=== PATIENT | female | born 1940 | race Caucasian/White ===

== ENCOUNTER 2018-01-28 05:50 | Emergency (ER) | payer MEDICARE, OTHER ==
--- NOTE | 2018-01-28 06:31 | ER Document Report ---
ED Fall - General Mode of Arrival: Medic Information source: Patient, Relative TRAVEL OUTSIDE OF THE U.S. IN LAST 30 DAYS: No <MAISHA ANDRADE - Last Filed: 01/28/18 08:41> <ELIAZAR WEST - Last Filed: 01/28/18 08:46> - General Chief Complaint: Fall Stated Complaint: FALL Time Seen by Provider: 01/28/18 06:09 Notes: 77-year-old female who presents to the emergency department today with complaints of a fall that occurred this morning when trying to get up from the toilet. Patient lives at the [facility]. Patient states that she rang her call kilgore, she was wheeled to the bathroom but the wheelchair was removed so when standing up from the toilet she had nothing to sit on and lost her balance. Patient complains of a laceration to her forehead and right elbow. Patient also complains of neck soreness which is chronic for her. Patient denies any new neck pain, stating it seems to be about baseline, but mentions that she is not taking her morning meds yet either. Patient takes aspirin daily. Patient denies any vomiting or loss of consciousness. (MAISHA ANDRADE) - Related data Allergies/Adverse Reactions: shellfish Allergy (Uncoded 01/28/18 07:37) Past Medical History - General Information source: Patient - Social History Smoking Status: Never Smoker Cigarette use (# per day): No Frequency of alcohol use: Rare Lives with: Detention - [facility] - Past Medical History Cardiac Medical History: Reports: Hx Hypertension Neurological Medical History: Reports: Hx Cerebrovascular Accident <MAISHA ANDRADE - Last Filed: 01/28/18 08:41> - Social History Family History: Reviewed & Not Pertinent <ELIAZAR WEST - Last Filed: 01/28/18 08:46> Review of Systems - Review of Systems Constitutional: No symptoms reported EENT: No symptoms reported Cardiovascular: No symptoms reported Respiratory: No symptoms reported Gastrointestinal: denies: Vomiting Genitourinary: No symptoms reported Female Genitourinary: No symptoms reported Musculoskeletal: See HPI, Neck pain - chronic Skin: See HPI, Other - laceration to forehead, right elbow Hematologic/Lymphatic: No symptoms reported Neurological/Psychological: denies: Lost consciousness -: Yes All other systems reviewed and negative <MAISHA ANDRADE - Last Filed: 01/28/18 08:41> Physical Exam <LUPEMAISHA - Last Filed: 01/28/18 08:41> <ELIAZAR WEST - Last Filed: 01/28/18 08:46> - Vital signs Vitals: Pulse Resp BP Pulse Ox 69 16 142/78 H 100 01/28/18 05:50 01/28/18 05:50 01/28/18 05:50 01/28/18 05:50 - Notes Notes: PHYSICAL EXAM GENERAL: Alert, interacts well. No acute distress. HEAD: Normocephalic, see skin exam. EYES: Pupils equal, round, and reactive to light. Extraocular movements intact. ENT: Oral mucosa moist, tongue midline. NECK: Supple. Trachea midline. No midline bony tenderness with palpation. LUNGS: Crackles at the bases bilaterally, no wheezes, rales, or rhonchi. No respiratory distress. HEART: Regular rate and rhythm. No murmurs, gallops, or rubs. ABDOMEN: Soft, mild tenderness with palpation. Non-distended. Bowel sounds present in all 4 quadrants. No guarding, rigidity, or rebound. EXTREMITIES: Moves all 4 extremities spontaneously. No edema, radial and dorsalis pedis pulses 2/4 bilaterally. No cyanosis. NEUROLOGICAL: Alert and oriented x3. Normal speech. PSYCH: Normal affect, normal mood. SKIN: Warm, dry, normal turgor. 2cm abrasion over the forehead with underlying superficial laceration. Superficial abrasion over the right olecranon with minimal bleeding without skin flap or true laceration. Bandages over right thigh that is followed by home health - patient and family request that this bandage not be removed as it was not involved in the fall today. (MAISHA ANDRADE) Course <MAISHA ANDRADE - Last Filed: 01/28/18 08:41> <ELIAZAR WEST - Last Filed: 01/28/18 08:46> - Re-evaluation Re-evalutation: 01/28/18 07:45 CT scan of the head shows no acute process, patient's neck pain is only slightly increased from baseline and she states she think that is because she has not had her usual morning medications yet. Patient has no new neurologic deficits. She does not have any numbness or tingling, she does not have any signs of cord injury and she has no midline bony tenderness to palpation. No indication for CT scan of the neck at this time. Discussed risks and benefits of CT scan of the neck versus holding off with patient and family and at this time they do not wish to perform a CT scan of the neck. There is a very slight laceration to the forehead with superficial skin tear measuring approximately 2 cm, this was cleansed with Shur-Clens and then approximated with Dermabond. Patient was given her usual morning Celebrex, Ativan and tramadol. Discharged home. (ELIAZAR WEST) - Vital Signs Vital signs: Temp Pulse Resp BP Pulse Ox 66 16 142/74 H 96 01/28/18 08:28 01/28/18 08:28 01/28/18 08:28 01/28/18 08:28 Procedures - Laceration/Wound Repair Right Upper Face Wound length (cm): 2 Wound's Depth, Shape: Superficial, Contused tissue Laceration pre-procedure: Shur-Clens applied Wound explored: Clean, No foreign body removed Wound Repaired With: Dermabond Layer Closure?: No Post-procedure NV exam normal: Yes Complications: No <ELIAZAR WEST - Last Filed: 01/28/18 08:46> Discharge <MAISHA ANDRADE - Last Filed: 01/28/18 08:41> <ELIAZAR WEST - Last Filed: 01/28/18 08:46> - Discharge Clinical Impression: Fall from or off toilet with subsequent striking against object, initial encounter Laceration of head Qualifiers: Encounter type: initial encounter Location of open wound of head: scalp Foreign body presence: without foreign body Qualified Code(s): S01.01XA - Laceration without foreign body of scalp, initial encounter Condition: Stable Disposition: HOME, SELF-CARE Additional Instructions: Skin Adhesive Closure Skin adhesive (such as Dermabond) is a quick-drying glue that remains slightly flexible while it holds wound edges together. It can substitute for stitches on some cuts. The film will usually fall off the skin after 5 to 10 days. Keep the wound area clean and dry. Do not soak or scrub the wound. Don't swim. You can shower briefly after 24 hours. Gently blot the area dry with a soft towel. Don't apply ointments. If there is a dressing, change it immediately if it gets wet. Do not place tape directly over the adhesive film, because the tape may pull the film off your skin as you remove it. Don't bump the wound area. If there's risk of injury, keep the area well- padded. Avoid stretching of the skin. Do not scratch or pick at the adhesive film. Avoid prolonged exposure to sunlight or tanning lamps. Return if there is increasing pain, swelling, redness, or drainage, or if the wound edges seem to open or separate. Head Injury Precautions At this point, there is no evidence that your head injury is serious. Observation is necessary, however. Take only clear liquids for the first few hours, unless told otherwise by the doctor. If no pain medication was prescribed, you may take acetaminophen according to the directions on the bottle. Do not take any medication that may alter your level of alertness (unless you've discussed it with the doctor first) . Limit activity for the first 24 hours. Bed rest is best. During the first 24 hours, check to see approximately every two to three hours that the patient is easily arousable, responds normally, and can perform common tasks such as walking without difficulty. Contact your doctor or go to the hospital if any of the following things occur: Persistent vomiting, difficulty in arousing the patient, worsening or continued headache, or failure to improve as expected. Head injuries can cause symptoms that persist for a few days or even a few weeks. Scribe Attestation: 01/28/18 08:46 I personally performed the services described in the documentation, reviewed and edited the documentation which was dictated to the scribe in my presence, and it accurately records my words and actions. (ELIAZAR WEST) Scribe Documentation - Scribe Written by Jairo:: Jairo Kwan, 01/28/2018 0815 acting as scribe for :: Devyn <MAISHA ANDRADE - Last Filed: 01/28/18 08:41>
--- NOTE | 2018-01-28 07:08 | RADIOLOGY REPORT (SQ) ---
EXAM DESCRIPTION: CT HEAD WITHOUT IV CONTRAST COMPLETED DATE/TME: 01/28/2018 06:30 CLINICAL HISTORY: 77 years Female, fell, hit head, on ASA COMPARISON: None. TECHNIQUE: No contrast. Coronal and sagittal reformat. This exam was performed according to our departmental dose-optimization program, which includes automated exposure control, adjustment of the mA and/or kV according to patient size and/or use of iterative reconstruction technique. FINDINGS: No hemorrhage or infarct. No mass, mass effect, or midline shift. Posterior craniocervical hardware fusion. Brain and extra-axial structures appear otherwise intact. IMPRESSION: No acute findings.
[2018-01-28] MEDS ORDERED: TRAMADOL HCL 50 MG TABLET PO ONE (07:37)
[2018-01-28] MEDS ORDERED: LORAZEPAM 0.5 MG TABLET PO ONE (07:37)
[2018-01-28] MEDS ORDERED: PREGABALIN 50 MG CAPSULE PO ONE (07:37)
[2018-01-28] MEDS ORDERED: CELECOXIB 200 MG CAPSULE PO ONE (07:37)
[2018-01-28 08:29] VITALS: BP 142/74
== END 2018-01-28 08:29 | disposition home or self-care (01) ==
LOC: ER 05:50
PROC: 0HQ1XZZ Repair Face Skin, External Approach (ICD-10-PCS; principal; 2018-01-28)
DX: S01.81XA Laceration without foreign body of other part of head, initial encounter (principal); S51.011A Laceration without foreign body of right elbow, initial encounter; M54.2 Cervicalgia; G89.29 Other chronic pain; W18.12XA Fall from or off toilet with subsequent striking against object, initial encounter; Y92.121 Bathroom in nursing home as the place of occurrence of the external cause; I10 Essential (primary) hypertension
CPT/HCPCS: 99283; 70450; 12011; A9270 ×4; J3490

== ENCOUNTER 2018-03-14 19:17 | Emergency (ER) | payer MEDICARE, OTHER ==
[2018-03-14] MEDS ORDERED: ONDANSETRON HCL INJ/PF 4 MG/2 ML SDV IV ONE ×2 (20:47→22:39)
--- NOTE | 2018-03-14 20:51 | ER Document Report ---
ED Medical Screen (RME) - General Chief Complaint: Abdominal Pain Stated Complaint: ABDOMINAL PAIN Time Seen by Provider: 03/14/18 20:34 Notes: Patient is a 78-year-old female presents to the emergency department complaining of generalized lower abdominal pain and vomiting. Patient's son is in the emergency room with her stating patient has an extensive history of abdominal pain and vomiting episodes over the last couple of months. States she was seen at an outside hospital for same. States he thinks the patient was getting better and then today at the nursing facility started dry heaving and vomiting and complaining of generalized right lower abdominal pain. Patient is denying fever, dysuria. Son states patient does have an extensive history of hypokalemia and urinary tract infections. Physical exam: Generalized abdominal pain bilateral lower quadrants. Patient is actively dry heaving no active vomit seen. I have greeted and performed a rapid initial assessment of this patient. A comprehensive ED assessment and evaluation of the patient, analysis of test results and completion of the medical decision making process will be conducted by additional ED providers. TRAVEL OUTSIDE OF THE [place] IN LAST 30 DAYS: No - Related Data Allergies/Adverse Reactions: iodine Allergy (Verified 03/14/18 20:09) oxycodone Allergy (Verified 03/14/18 20:09) shellfish Allergy (Uncoded 01/28/18 07:37) Past Medical History - Social History Chew tobacco use (# tins/day): No Frequency of alcohol use: None Drug Abuse: None - Past Medical History Cardiac Medical History: Reports: Hx Hypertension Neurological Medical History: Reports: Hx Cerebrovascular Accident Renal/ Medical History: Denies: Hx Peritoneal Dialysis Physical Exam - Vital signs Vitals: Temp Pulse Resp BP Pulse Ox 98.5 F 93 24 H 143/92 H 100 03/14/18 19:24 03/14/18 19:24 03/14/18 19:24 03/14/18 19:24 03/14/18 19:24 Course - Vital Signs Vital signs: Temp Pulse Resp BP Pulse Ox 98.5 F 93 24 H 143/92 H 100 03/14/18 19:24 03/14/18 19:24 03/14/18 19:24 03/14/18 19:24 03/14/18 19:24
[2018-03-14 21:18] LABS: ABSOLUTE EOSINOPHILS # (AUTO) 0.2 10^3/uL (0.0-0.6); ABSOLUTE LYMPHOCYTES (AUTO) 2.4 10^3/uL (0.5-4.7); ABSOLUTE MONOCYTES (AUTO) 0.6 10^3/uL (0.1-1.4); ABSOLUTE NEUT (AUTO) 4.8 10^3/uL (1.7-8.2); BASOPHILS % (AUTO) 0.4 % (0-2); EOSINOPHILS % (AUTO) 1.9 % (0-6); HEMOGLOBIN 13.8 g/dL (12.0-15.5); LYMPHOCYTES % (AUTO) 29.5 % (13-45); MEAN CORPUSCULAR HEMOGLOBIN 29.2 pg (27.0-33.4); MEAN CORPUSCULAR HGB CONC 33.7 g/dL (32.0-36.0); MEAN CORPUSCULAR VOLUME 87 fl (80-97); MONOCYTES % (AUTO) 7.7 % (3-13); PLATELET COUNT 448 10^3/uL (150-450); RED BLOOD COUNT 4.72 10^6/uL (3.72-5.28); RED CELL DISTRIBUTION WIDTH 14.6 % (11.5-14.0); SEGMENTED NEUTROPHILS % (AUTO) 60.5 % (42-78); TOTAL CELLS COUNTED % (AUTO) 100 %
[2018-03-14 21:22] LABS: ALANINE AMINOTRANSFERASE 15 U/L (9-52); ALBUMIN 4.3 g/dL (3.5-5.0); ALKALINE PHOSPHATASE 105 U/L (38-126); ANION GAP 8 (5-19); ASPARTATE AMINO TRANSFERASE 57 U/L (14-36); BILIRUBIN,DIRECT 0.3 mg/dL (0.0-0.4); BILIRUBIN,TOTAL 0.5 mg/dL (0.2-1.3); BLOOD UREA NITROGEN 18 mg/dL (7-20); CALCIUM 9.7 mg/dL (8.4-10.2); CARBON DIOXIDE 30 mmol/L (22-30); CHLORIDE 99 mmol/L (98-107); GLUCOSE 122 mg/dL (75-110); LIPASE 78.1 U/L (23-300); POTASSIUM 3.2 mmol/L (3.6-5.0); SODIUM 136.8 mmol/L (137-145); TOTAL PROTEIN 7.4 g/dL (6.3-8.2)
--- NOTE | 2018-03-14 21:41 | RADIOLOGY REPORT (SQ) ---
EXAM DESCRIPTION: XR ABDOMEN SUPINE AND ERECT WITH CHEST (ABD ACUTE SERIES) COMPLETED DATE/TME: 03/14/2018 20:48 CLINICAL HISTORY: 78 years, Female, abd pain vomiting COMPARISON: None. NUMBER OF VIEWS: 3 TECHNIQUE: Upright chest with supine and erect views of the abdomen LIMITATIONS: None. FINDINGS: The heart size is normal. Osteopenia. Chronic changes to the shoulders bilaterally. No pneumothorax. No free air under the hemidiaphragms. Multiple nondilated air-filled loops of small bowel with a few air-fluid levels likely reflecting ileus. Incomplete obstruction felt less likely. Stool in the colon. No free air. Surgical clips in the abdomen and pelvis. Osteopenia. Atheromatous changes. IMPRESSION: No acute cardiopulmonary process. Probable mild ileus. No free air. Osteopenia copyright 2010 [employer]- All Rights Reserved
--- NOTE | 2018-03-14 22:11 | ER Document Report ---
ED General - General Chief Complaint: Abdominal Pain Stated Complaint: ABDOMINAL PAIN Time Seen by Provider: 03/14/18 20:34 Mode of Arrival: Ambulatory Information source: Patient Notes: 78-year-old female presents the emergency department with complaints of right lower quadrant abdominal pain, nausea, vomiting x 4 weeks. She has been seen at [facility] for similar symptoms multiple times. She was diagnosed with a urinary tract infection and discharged home on Zofran. She is been taking the medication as directed but continues to have the nausea and vomiting. Patient describes the pain as a dull aching sensation located in the right lower quadrant. No radiation. No alleviating or exacerbating factors. Patient states that she has had a cholecystectomy and hysterectomy. TRAVEL OUTSIDE OF THE [place] IN LAST 30 DAYS: No - HPI Onset: Other - 4 weeks Onset/Duration: Persistent Quality of pain: Achy Severity: Mild Pain Level: Denies Associated symptoms: Nausea, Vomiting Exacerbated by: Denies Relieved by: Denies Similar symptoms previously: Yes Recently seen / treated by doctor: Yes - Related Data Allergies/Adverse Reactions: iodine Allergy (Verified 03/14/18 20:09) oxycodone Allergy (Verified 03/14/18 20:09) shellfish Allergy (Uncoded 01/28/18 07:37) Past Medical History - General Information source: Patient - Social History Smoking Status: Never Smoker Chew tobacco use (# tins/day): No Frequency of alcohol use: None Drug Abuse: None Family History: Reviewed & Not Pertinent Patient has suicidal ideation: No Patient has homicidal ideation: No - Past Medical History Cardiac Medical History: Reports: Hx Hypertension Neurological Medical History: Reports: Hx Cerebrovascular Accident Renal/ Medical History: Denies: Hx Peritoneal Dialysis Review of Systems - Review of Systems Constitutional: No symptoms reported EENT: No symptoms reported Cardiovascular: No symptoms reported Respiratory: No symptoms reported Gastrointestinal: Abdominal pain, Nausea, Vomiting Genitourinary: No symptoms reported Female Genitourinary: No symptoms reported Musculoskeletal: No symptoms reported Skin: No symptoms reported Hematologic/Lymphatic: No symptoms reported Neurological/Psychological: No symptoms reported -: Yes All other systems reviewed and negative Physical Exam - Vital signs Vitals: Temp Pulse Resp BP Pulse Ox 98.5 F 93 24 H 143/92 H 100 03/14/18 19:24 03/14/18 19:24 03/14/18 19:24 03/14/18 19:24 03/14/18 19:24 - Notes Notes: PHYSICAL EXAMINATION: GENERAL: Well-appearing, Dry-heaving in the room. HEAD: Atraumatic, normocephalic. EYES: Pupils equal round and reactive to light, extraocular movements intact, conjunctiva are normal. ENT: Nares patent, oropharynx clear without exudates. Moist mucous membranes. NECK: Normal range of motion, supple without lymphadenopathy LUNGS: Breath sounds clear to auscultation bilaterally and equal. No wheezes rales or rhonchi. HEART: Regular rate and rhythm without murmurs ABDOMEN: Soft, tenderness to palpation in the right lower quadrant. No rebound or guarding. Female : deferred Musculoskeletal: Normal range of motion, no pitting or edema. No cyanosis. NEUROLOGICAL: Cranial nerves grossly intact. Normal speech, normal gait. Normal sensory, motor exams PSYCH: Normal mood, normal affect. SKIN: Warm, Dry, normal turgor, no rashes or lesions noted. Course - Re-evaluation Re-evalutation: 03/15/18 01:58 Labs and imaging obtained. UA has positive bacteria and WBC. Negative LE and nitrates. Urine culture ordered. Patient's potassium is slightly low. She was given potassium while in the emergency department. CT of the abdomen pelvis did not show an acute process. Patient was given fentanyl for pain. On reevaluation, patient states that she is feeling slightly better. She states that she is been having this for the last 4 weeks. I gave her the CT results. I told her no acute process was identified. I will start the patient on keflex for possible urinary tract infection. I instructed the patient to follow-up with her primary care physician this week, to continue taking medication prescribed as directed, and to return for worsening symptoms. 03/15/18 02:21 - Vital Signs Vital signs: Temp Pulse Resp BP Pulse Ox 98.3 F 76 18 134/67 H 96 03/15/18 03:00 03/15/18 03:09 03/15/18 03:09 03/15/18 03:09 03/15/18 03:09 - Laboratory Result Diagrams: 03/14/18 20:55 03/14/18 20:55 Laboratory results interpreted by me: 03/14/18 03/14/18 20:55 20:55 RDW 14.6 H Sodium 136.8 L Potassium 3.2 L Est GFR ( Amer) 53 L Est GFR (Non-Af Amer) 44 L Glucose 122 H AST 57 H Discharge - Discharge Clinical Impression: Abdominal pain Qualifiers: Abdominal location: right lower quadrant Qualified Code(s): R10.31 - Right lower quadrant pain Condition: Good Disposition: HOME, SELF-CARE Instructions: Abdominal Pain ([facility]) Prescriptions: Cephalexin Monohydrate [Keflex 500 mg Capsule] 500 mg PO Q6H 5 Days #20 capsule Referrals: NEREIDA OKEEFE MD [ACTIVE STAFF] - Follow up as needed
[2018-03-14 22:37] LABS: APPEARANCE,URINE CLOUDY; BILIRUBIN,URINE NEGATIVE (NEGATIVE); COLOR,URINE YELLOW; GLUCOSE, URINE NEGATIVE (NEGATIVE); KETONES,URINE NEGATIVE (NEGATIVE); LEUKOCYTE ESTERASE,URINE NEGATIVE (NEGATIVE); NITRITE,URINE NEGATIVE (NEGATIVE); PROTEIN,URINE NEGATIVE (NEGATIVE); URINE SPECIFIC GRAVITY 1.011; UROBILINOGEN,URINE NEGATIVE mg/dL (<2.0)
--- NOTE | 2018-03-14 23:12 | RADIOLOGY REPORT (SQ) ---
EXAM DESCRIPTION: CT ABDOMEN PELVIS WITH IV CONTRAST COMPLETED DATE/TME: 03/14/2018 20:47 CLINICAL HISTORY: 78 years, Female, right abd pain, pt fell yesterday COMPARISON: None. TECHNIQUE: 803 Images stored on PACS. All CT scanners at this facility use dose modulation, iterative reconstruction, and/or weight based dosing when appropriate to reduce radiation dose to as low as reasonably achievable (ALARA). [facility]: Dose Right [facility]: CareDose [facility]: Dose Right [facility]: Teradose 4D [facility]: [employer] LIMITATIONS: None. FINDINGS: Limited evaluation of the lung bases is unremarkable. Osseous structures of the abdomen/pelvis demonstrate post surgical changes of the lumbar spine. Multilevel degenerative change of the lumbar spine. Deformity minimal loss of height of the L4 vertebral body, which may be chronic in nature. Correlation with any prior exams is recommended. Deformity of the L2 and L3 levels with what is likely at least partial bony fusion. Slightly nodular contour to the liver. Correlate with liver function. The spleen, adrenal glands, pancreas, are unremarkable. Slightly atrophic appearance to the kidneys bilaterally. Duplex left collecting system. Status post cholecystectomy. Biliary ductal dilatation is likely a function of postcholecystectomy state. No gross evidence for bowel obstruction. Surgical clips in the left hemipelvis. No free air or free fluid. There is an old healed fracture deformity of the right inferior pubic ramus. Chronic changes to the right hemipelvis as well. IMPRESSION: Negative for acute intra-abdominal/pelvic process. Extensive post surgical changes of the lumbar spine. What is likely partial bony fusion of the L2 and L3 levels. Multilevel degenerative change. Minimal loss of height of L4 which may be chronic. Chronic changes to the right ilium and right inferior pubic ramus. Slightly nodular contour to the liver could reflect cirrhotic change. Correlate with liver function. Status post cholecystectomy. Biliary ductal dilatation is likely a function of postcholecystectomy state.. TECHNICAL DOCUMENTATION: Quality ID # 436: Final reports with documentation of one or more dose reduction techniques (e.g., Automated exposure control, adjustment of the mA and/or kV according to patient size, use of iterative reconstruction technique) copyright 2011 [employer]- All Rights Reserved
--- NOTE | 2018-03-14 23:46 | RADIOLOGY REPORT (SQ) ---
EXAM DESCRIPTION: CT HEAD WITHOUT IV CONTRAST COMPLETED DATE/TME: 03/14/2018 23:01 CLINICAL HISTORY: 78 years, Female, fall COMPARISON: Prior CT brain 01/28/2018. TECHNIQUE: 193 Images stored on PACS. All CT scanners at this facility use dose modulation, iterative reconstruction, and/or weight based dosing when appropriate to reduce radiation dose to as low as reasonably achievable (ALARA). [facility]: Dose Right [facility]: CareDose [facility]: Dose Right [facility]: Teradose 4D [facility]: [employer] LIMITATIONS: None. FINDINGS: The globes are intact. The paranasal sinuses and mastoid air cells are well aerated. No displaced or depressed skull fracture. Postsurgical changes of the posterior fossa. Patient has recently received IV contrast, therefore there is limited assessment for acute intracranial hemorrhage. No convincing evidence for intra or extra-axial hemorrhage. Negative for mass or midline shift. CT is limited for evaluation of acute infarct. No CT evidence for large or territorial acute infarct. No mass. Mild diffuse atrophy and small vessel ischemic change. IMPRESSION: Mild diffuse atrophy and small vessel ischemic change. Post surgical changes of the posterior fossa. TECHNICAL DOCUMENTATION: Quality ID # 436: Final reports with documentation of one or more dose reduction techniques (e.g., Automated exposure control, adjustment of the mA and/or kV according to patient size, use of iterative reconstruction technique) copyright 2011 [employer]- All Rights Reserved
--- NOTE | 2018-03-14 23:49 | RADIOLOGY REPORT (SQ) ---
EXAM DESCRIPTION: CT CERVICAL SPINE WITHOUT IV CONTRAST COMPLETED DATE/TME: 03/14/2018 23:01 CLINICAL HISTORY: 78 years, Female, fall COMPARISON: None. TECHNIQUE: 260 Images stored on PACS. All CT scanners at this facility use dose modulation, iterative reconstruction, and/or weight based dosing when appropriate to reduce radiation dose to as low as reasonably achievable (ALARA). [facility]: Dose Right [facility]: CareDose [facility]: Dose Right [facility]: Teradose 4D [facility]: [employer] LIMITATIONS: None. FINDINGS: Evaluation of spinal canal contents limited due to CT technique. Osteopenia. Postsurgical changes with anterior fixation plate and screws at the C4/C5 levels. Partial bony fusion of these levels. Post surgical changes of the posterior fossa with posterior fixation C4, C5, C6. Associated streak artifact. Minimal anterolisthesis of C6 with respect to C7, likely developmental or degenerative in nature. Large Schmorl's node deformity involving the inferior T3 endplate. Severe endplate degenerative changes with partial bony fusion of the lower cervical and upper thoracic spines. No convincing CT evidence for an acute osseous abnormality. Chronic appearing changes to the dens. Postsurgical changes of the posterior fossa and what are likely postsurgical or developmental changes to the posterior arch of C1. The prevertebral soft tissues are normal. Extraspinal anatomic structures are unremarkable. IMPRESSION: Extensive postsurgical changes, as above with no convincing CT evidence for acute C-spine abnormality. Multilevel degenerative changes, as above. Osteopenia.. TECHNICAL DOCUMENTATION: Quality ID # 436: Final reports with documentation of one or more dose reduction techniques (e.g., Automated exposure control, adjustment of the mA and/or kV according to patient size, use of iterative reconstruction technique) copyright 2011 [employer]- All Rights Reserved
[2018-03-15] MEDS ORDERED: FENTANYL CITRATE INJ/PF 100 MCG/2 ML AMPUL IV ONE ×2 (00:55→01:55)
[2018-03-15] MEDS ORDERED: POTASSIUM CHLORIDE 10 MEQ CAPSULE.ER PO ONE (01:02)
[2018-03-15] MEDS ORDERED: NORMAL SALINE 500 ML IV ONE (01:03)
[2018-03-15 03:10] VITALS: BP 134/67
== END 2018-03-15 03:18 | disposition home or self-care (01) ==
LOC: ER 19:17
DX: R10.31 Right lower quadrant pain (principal); R11.2 Nausea with vomiting, unspecified; I10 Essential (primary) hypertension; Z86.73 Personal history of transient ischemic attack (TIA), and cerebral infarction without residual deficits; Z88.6 Allergy status to analgesic agent; Z91.013 Allergy to seafood; Z90.49 Acquired absence of other specified parts of digestive tract; Z90.710 Acquired absence of both cervix and uterus
CPT/HCPCS: 96376; 99284; 96361; 96374; 36415; 87086; 83690; 83735; 85025; 87088; 80053; 81001; 74022; 70450; 72125; 74177; J3010; J7040; A9270; 87186

== ENCOUNTER 2018-05-10 18:34 | Inpatient (IN) | payer MEDICARE, OTHER ==
--- NOTE | 2018-05-10 18:56 | ER Document Report ---
ED General - General Chief Complaint: Altered Mental Status Stated Complaint: FEVER Time Seen by Provider: 05/10/18 18:55 TRAVEL OUTSIDE OF THE [place] IN LAST 30 DAYS: No - Related Data Allergies/Adverse Reactions: iodine Allergy (Verified 03/14/18 20:09) oxycodone Allergy (Verified 03/14/18 20:09) shellfish Allergy (Uncoded 01/28/18 07:37) Past Medical History - Social History Smoking Status: Unknown if Ever Smoked Family History: Reviewed & Not Pertinent Patient has suicidal ideation: No Patient has homicidal ideation: No - Past Medical History Cardiac Medical History: Reports: Hx Hypertension Neurological Medical History: Reports: Hx Cerebrovascular Accident Renal/ Medical History: Denies: Hx Peritoneal Dialysis Physical Exam - Vital signs Vitals: Temp Pulse Resp BP Pulse Ox 99.6 F 89 16 129/88 H 96 05/10/18 18:53 05/10/18 18:53 05/10/18 18:53 05/10/18 18:53 05/10/18 18:53 Course - Re-evaluation Re-evalutation: 05/10/18 22:55 Blood work shows elevated white blood cell count with normal troponin, chest x- ray consistent with a right lower lobe pneumonia. Patient is admitted to the hospitalist. - Vital Signs Vital signs: Temp Pulse Resp BP Pulse Ox 98.1 F 89 12 84/36 L 96 05/10/18 22:13 05/10/18 18:53 05/10/18 22:01 05/10/18 22:01 05/10/18 22:01 - Laboratory Result Diagrams: 05/10/18 20:11 05/10/18 20:11 Laboratory results interpreted by me: 05/10/18 05/10/18 05/10/18 20:11 20:11 20:11 WBC 29.5 H Hgb 11.7 L Hct 34.9 L RDW 14.9 H Seg Neuts % (Manual) 82 H Band Neutrophils % 14 H Lymphocytes % (Manual) 2 L Monocytes % (Manual) 2 L Abs Neuts (Manual) 28.3 H Carbonic Acid ABG pCO2 ABG HCO3 ABG Total CO2 Carbon Dioxide 20 L BUN 21 H Est GFR (Non-Af Amer) 49 L Lactic Acid NT-Pro-B Natriuret Pep 603 H Total Protein 5.9 L Urine Urobilinogen 05/10/18 05/10/18 05/10/18 20:11 20:32 21:40 WBC Hgb Hct RDW Seg Neuts % (Manual) Band Neutrophils % Lymphocytes % (Manual) Monocytes % (Manual) Abs Neuts (Manual) Carbonic Acid 0.84 L ABG pCO2 27.9 L ABG HCO3 17.6 L ABG Total CO2 18.4 L Carbon Dioxide BUN Est GFR (Non-Af Amer) Lactic Acid 2.2 H NT-Pro-B Natriuret Pep Total Protein Urine Urobilinogen 2.0 H - Diagnostic Test Radiology reviewed: Image reviewed, Reports reviewed - EKG Interpretation by Me EKG shows normal: Sinus rhythm Rate: Normal Rhythm: NSR [place]/QRS: No: Right axis deviation, Left axis deviation, RBBB, LBBB, IVCD, LAHB/LAFB, LPHB/LPFB, Bifasicular block Voltage: No: Increased voltage, Consistant with LVH, Decreased voltage, Throu ghout, Limb leads P Waves: No: [place], LAE, Absent, AV Dissociation, Other Heart block present: No: 1st Degree, Mobitz 1, Mobitz 2, CHB (3rd degree block) When compared to previous EKG there are: Previous EKG unavailable - Consults Dr. Miller Time consulted: 22:54 - will admit Consulted provider: will come to ER Discharge - Discharge Clinical Impression: Community acquired pneumonia Qualifiers: Laterality: right Lung location: lower lobe of lung Qualified Code(s): J18.1 - Lobar pneumonia, unspecified organism Altered mental status Qualifiers: Altered mental status type: disorientation Qualified Code(s): R41.0 - Disorie ntation, unspecified Condition: Stable Disposition: ADMITTED INPATIENT Admitting Provider: Hospitalist Unit Admitted: Medical Floor
[2018-05-10] MEDS ORDERED: PIPERACILLIN/TAZOBACTAM 3.375 GM VIAL IV ONE (19:27)
[2018-05-10] MEDS ORDERED: VANCOMYCIN HCL INJ 1000 MG VIAL IV ONE (19:27)
--- NOTE | 2018-05-10 20:05 | RADIOLOGY REPORT (SQ) ---
EXAM DESCRIPTION: CT HEAD WITHOUT COMPLETED DATE/TIME: 05/10/2018 7:49 pm REASON FOR STUDY: AMS COMPARISON: 03/14/2018 TECHNIQUE: Axial images acquired through the brain without intravenous contrast. Images reviewed wi th bone, brain and subdural windows. Images stored on PACS. All CT scanners at this facility use dose modulation, iterative reconstruction, and/or weight based d osing when appropriate to reduce radiation dose to as low as reasonably achievable (ALARA). [facility]: Dose Right [facility]: CareDose [facility]: Dose Right [facility]: Teradose 4D [facility]: [employer] RADIATION DOSE: CT Rad equipment meets quality standard of care and radiation dose reduction techniq ues were employed. CTDIvol: 53.2 mGy. DLP: 991 mGy-cm. mGy. LIMITATIONS: None. FINDINGS: VENTRICLES: Stable. CEREBRUM: No masses. No hemorrhage. No midline shift. Areas of low density in the white matter mos t likely due to chronic micro-vascular ischemic change. No evidence for acute infarction. CEREBELLUM: No masses. No hemorrhage. No alteration of density. No evidence for acute infarction. EXTRAAXIAL SPACES: Mild age-related involutional change. No fluid collections. No masses. ORBITS AND GLOBE: No intra- or extraconal masses. Normal contour of globe without masses. CALVARIUM: No fracture. PARANASAL SINUSES: No fluid or mucosal thickening. SOFT TISSUES: No mass or hematoma. OTHER: No other significant finding. IMPRESSION: No acute intracranial findings. EVIDENCE OF ACUTE STROKE: NO. TECHNICAL DOCUMENTATION: JOB ID: [id number] Quality ID # [id number]: Final reports with documentation of one or more dose reduction techniques (e.g., Au tomated exposure control, adjustment of the mA and/or kV according to patient size, use of iterative reconstruction technique) 2010 [employer]- All Rights Reserved Reading location - IP/workstation name: [employer]
--- NOTE | 2018-05-10 20:12 | RADIOLOGY REPORT (SQ) ---
EXAM DESCRIPTION: XR CHEST 1 VIEW COMPLETED DATE/TME: 05/10/2018 19:53 CLINICAL HISTORY: Cough COMPARISON: None FINDINGS: Decreased lung volumes could be secondary to underinflation. Cardiac silhouette is within normal limits. Aorta is tortuous. EKG leads project over the chest. Vague nodular opacity of the right lower lung could represent summation of shadows, underlying pulmonary nodule, atelectasis or infectious process cannot be excluded. Recommend follow-up. There is no pneumothorax. Costophrenic angles are sharp. There is deformity of both shoulder joints. IMPRESSION: Focal nodular-like opacity in the right lower lung could be secondary to atelectasis, early infectious process or an underlying pulmonary nodule cannot be excluded. Recommend follow-up.
[2018-05-10 20:31] LABS: HEMATOCRIT 34.9 % (36.0-47.0); HEMOGLOBIN 11.7 g/dL (12.0-15.5); MEAN CORPUSCULAR HEMOGLOBIN 28.5 pg (27.0-33.4); MEAN CORPUSCULAR HGB CONC 33.4 g/dL (32.0-36.0); MEAN CORPUSCULAR VOLUME 85 fl (80-97); PLATELET COUNT 422 10^3/uL (150-450); RED CELL DISTRIBUTION WIDTH 14.9 % (11.5-14.0); WHITE BLOOD COUNT 29.5 10^3/uL (4.0-10.5)
[2018-05-10 20:40] LABS: ALANINE AMINOTRANSFERASE 23 U/L (9-52); ALBUMIN 3.5 g/dL (3.5-5.0); ALKALINE PHOSPHATASE 93 U/L (38-126); ANION GAP 11 (5-19); ASPARTATE AMINO TRANSFERASE 26 U/L (14-36); BILIRUBIN,DIRECT 0.3 mg/dL (0.0-0.4); BILIRUBIN,TOTAL 0.5 mg/dL (0.2-1.3); BLOOD UREA NITROGEN 21 mg/dL (7-20); CALCIUM 9.8 mg/dL (8.4-10.2); CARBON DIOXIDE 20 mmol/L (22-30); CHLORIDE 107 mmol/L (98-107); GLUCOSE 103 mg/dL (75-110); POTASSIUM 4.3 mmol/L (3.6-5.0); SODIUM 138.1 mmol/L (137-145); TOTAL PROTEIN 5.9 g/dL (6.3-8.2)
[2018-05-10 20:43] LABS: APPEARANCE,URINE CLEAR; BILIRUBIN,URINE NEGATIVE (NEGATIVE); COLOR,URINE YELLOW; GLUCOSE, URINE NEGATIVE (NEGATIVE); KETONES,URINE NEGATIVE (NEGATIVE); LEUKOCYTE ESTERASE,URINE NEGATIVE (NEGATIVE); NITRITE,URINE NEGATIVE (NEGATIVE); PROTEIN,URINE NEGATIVE (NEGATIVE); URINE SPECIFIC GRAVITY 1.016
[2018-05-10 20:49] LABS: ABSOLUTE LYMPHOCYTES# (MANUAL) 0.6 10^3/uL (0.5-4.7); ABSOLUTE MONOCYTES # (MANUAL) 0.6 10^3/uL (0.1-1.4); ABSOLUTE NEUTROPHILS# (MANUAL) 28.3 10^3/uL (1.7-8.2); BASOPHILS % (MANUAL) 0 % (0-2); EOSINOPHILS % (MANUAL) 0 % (0-6); LYMPHOCYTES % (MANUAL) 2 % (13-45); MONOCYTES % (MANUAL) 2 % (3-13); SEGMENTED NEUTROPHILS % (MAN) 82 % (42-78); TOTAL CELLS COUNTED 100
[2018-05-10 20:50] LABS: ANISOCYTOSIS SLIGHT; PLATELET COMMENT ADEQUATE; TOXIC GRANULATION SLIGHT
[2018-05-10 20:51] LABS: BAND NEUTROPHILS % (MANUAL) 14 % (3-5)
[2018-05-10 21:01] LABS: TROPONIN I 0.059 ng/mL
[2018-05-10 22:04] LABS: ARTERIAL BLOOD BASE EXCESS -5.7 mmol/L; ARTERIAL BLOOD H2CO3 0.84 mmol/L (1.05-1.35); ARTERIAL BLOOD HCO3 17.6 mmol/L (20-24); ARTERIAL BLOOD O2 SATURATION 96.7 % (94-98); ARTERIAL BLOOD PCO2 27.9 mmHg (35-45); ARTERIAL BLOOD PH 7.42 (7.35-7.45); ARTERIAL BLOOD PO2 84.4 mmHg (80-100); ARTERIAL BLOOD TOTAL CO2 18.4 mmol/L (21-25)
[2018-05-10 22:11] LABS: ARTERIAL BLOOD FIO2 1.5L
[2018-05-10] MEDS ORDERED: NORMAL SALINE 1000 ML 1,000 ML IV ONE (22:16)
[2018-05-10] MEDS ORDERED: GUAIFENESIN SYRP 200 MG/10 ML UDC PO PRN (22:34)
[2018-05-10] MEDS ORDERED: ACETAMINOPHEN 325 MG TABLET PO PRN (22:34)
[2018-05-10 23:37] LABS: FREE T3 2.86 pg/mL (2.77-5.27); FREE T4 (FREE THYROXINE) 1.84 ng/dL (0.78-2.19)
[2018-05-11] MEDS: LEVALBUTEROL HCL NEB 1.25 MG/3 ML AMPUL NEB SCH ×3 (00:49→16:02)
--- NOTE | 2018-05-11 01:28 | EKG REPORT ---
SEVERITY:- BORDERLINE ECG - SINUS RHYTHM LEFT AXIS DEVIATION BORDERLINE T WAVE ABNORMALITIES : Confirmed by: Kami Kitchen MD 11-May-2018 01:27:58
[2018-05-11] MEDS ORDERED: BENZOCAINE/MENTHOL SORE THROAT LOZENGE BUCCAL PRN (03:20)
[2018-05-11 03:46] LABS: HEMATOCRIT 33.6 % (36.0-47.0); HEMOGLOBIN 11.1 g/dL (12.0-15.5); MEAN CORPUSCULAR HEMOGLOBIN 28.5 pg (27.0-33.4); MEAN CORPUSCULAR HGB CONC 33.1 g/dL (32.0-36.0); MEAN CORPUSCULAR VOLUME 86 fl (80-97); PLATELET COUNT 398 10^3/uL (150-450); RED CELL DISTRIBUTION WIDTH 14.8 % (11.5-14.0); WHITE BLOOD COUNT 28.4 10^3/uL (4.0-10.5)
[2018-05-11 03:58] LABS: ANION GAP 12 (5-19); BLOOD UREA NITROGEN 24 mg/dL (7-20); CALCIUM 9.1 mg/dL (8.4-10.2); CARBON DIOXIDE 19 mmol/L (22-30); CHLORIDE 108 mmol/L (98-107); GLUCOSE 87 mg/dL (75-110); POTASSIUM 3.9 mmol/L (3.6-5.0); SODIUM 138.7 mmol/L (137-145)
[2018-05-11 04:18] LABS: ABSOLUTE LYMPHOCYTES# (MANUAL) 0.9 10^3/uL (0.5-4.7); ABSOLUTE MONOCYTES # (MANUAL) 1.7 10^3/uL (0.1-1.4); ABSOLUTE NEUTROPHILS# (MANUAL) 25.8 10^3/uL (1.7-8.2); BAND NEUTROPHILS % (MANUAL) 6 % (3-5); BASOPHILS % (MANUAL) 0 % (0-2); EOSINOPHILS % (MANUAL) 0 % (0-6); HYPOCHROMASIA SLIGHT; LYMPHOCYTES % (MANUAL) 3 % (13-45); MONOCYTES % (MANUAL) 6 % (3-13); SEGMENTED NEUTROPHILS % (MAN) 85 % (42-78); TOTAL CELLS COUNTED 100
[2018-05-11 04:22] LABS: PLATELET COMMENT ADEQUATE
--- NOTE | 2018-05-11 04:55 | PDOC H&P ---
History of Present Illness Admission Date/PCP: HONORIO CONNELLC Patient complains of: Altered mental status History of Present Illness: TYSHAWN SIFUENTES is a 78 year old female who presented to the emergency room with a history of worsening altered mental status over the last 12 hours prior to her admission. She has become acutely confused and as such is unable to participate in her historical evaluation. Her son indicates that for the last 3-4 days she has been experiencing a nonproductive cough without other symptoms. On the day of admission she developed mild confusion shortly after lunch and progressively worsened over the next several hours resulting in her transfer rotation to the emergency room from her assisted living facility. At the time she presented her son felt that her confusion was severe. She has a history of similar prior episodes due to urinary tract infections. In the emergency room she was found to have a white blood count of 30,000 and a serum lactate of 2.2 with a right lower lung focal opacity on her chest x-ray. Due to these findings patient was admitted for further evaluation and treatment of her probable pneum onia. Past Medical History Cardiac Medical History: Reports: Hypertension Denies: Coronary Artery Disease Pulmonary Medical History: Denies: Asthma, Chronic Obstructive Pulmonary Disease (COPD) EENT Medical History: Reports: None Neurological Medical History: Reports: Ischemic CVA Denies: Hemorrhagic CVA, Seizures Endocrine Medical History: Denies: Diabetes Mellitus Type 1, Diabetes Mellitus Type 2, Hyperthyroidism, Hypothyroidism Renal/ Medical History: Reports: Other - History of frequent urinary tract infections Denies: Chronic Kidney Disease, Nephrolithiasis Malignancy Medical History: Reports: None GI Medical History: Denies: Cirrhosis, Hepatitis Musculoskeltal Medical History: Denies: Arthritis, Gout Skin Medical History: Denies: Eczema, Psoriasis Psychiatric Medical History: Reports: Dementia - Early mild dementia at baseline Denies: Alcohol Dependency, Substance Abuse, Tobacco Dependency Traumatic Medical History: Reports: None Hematology: Denies: Anemia, Bleeding Tendencies Infectious Medical History: Reports: None Past Surgical History Past Surgical History: Reports: None Social History Information Source: Relative Lives with: [facility] Smoking Status: Never Smoker Frequency of Alcohol Use: None Hx Recreational Drug Use: No Drugs: None Hx Prescription Drug Abuse: No - Advance Directive Resuscitation Status: Full Code Surrogate healthcare decision maker:: Son Family History Family History: CVA, Hypertension Parental Family History Reviewed: Yes Children Family History Reviewed: No Sibling(s) Family History Reviewed.: Yes Medication/Allergy Home Medications: Cephalexin Monohydrate [Keflex 500 mg Capsule] 500 mg PO Q6H 5 Days #20 capsule 03/15/18 Allergies/Adverse Reactions: iodine Allergy (Verified 03/14/18 20:09) oxycodone Allergy (Verified 03/14/18 20:09) shellfish Allergy (Uncoded 01/28/18 07:37) Review of Systems ROS unobtainable: Due to mental status - Patient is acutely confused and unable to provide accurate and reliable information for review of systems at the present time. Eyes: PRESENT: other Physical Exam Vital Signs: Temp Pulse Resp BP Pulse Ox 98.1 F 89 12 84/36 L 96 05/10/18 22:13 05/10/18 18:53 05/10/18 22:01 05/10/18 22:01 05/10/18 22:01 Intake & Output 05/08/18 05/09/18 05/10/18 23:59 23:59 23:59 Weight 67.9 kg General appearance: PRESENT: no acute distress, cooperative Head exam: PRESENT: atraumatic, normocephalic Eye exam: PRESENT: conjunctiva pink. ABSENT: scleral icterus Ear exam: PRESENT: normal external ear exam. ABSENT: bleeding, drainage Mouth exam: PRESENT: dry mucosa, neck supple Neck exam: ABSENT: thyromegaly, tracheal deviation Respiratory exam: PRESENT: rales - Minimal rales present in the right middle lobe distribution on auscultation, symmetrical, unlabored. ABSENT: chest wall tenderness Cardiovascular exam: PRESENT: RRR. ABSENT: clicks, gallop, rubs Pulses: PRESENT: normal radial pulses, normal dorsalis pedis pul Vascular exam: PRESENT: normal capillary refill. ABSENT: pallor GI/Abdominal exam: PRESENT: normal bowel sounds, soft. ABSENT: tenderness Rectal exam: PRESENT: deferred Extremities exam: ABSENT: joint swelling, pedal edema Musculoskeletal exam: ABSENT: deformity, dislocation Neurological exam: PRESENT: altered - Acutely confused, awake, CN II-XII grossly intact. ABSENT: motor sensory deficit Psychiatric exam: PRESENT: appropriate affect, normal mood Skin exam: PRESENT: dry, intact, warm. ABSENT: jaundice, rash, urticaria Results Laboratory Results: 05/10/18 20:11 05/10/18 20:11 05/10/18 05/10/18 05/10/18 20:11 20:11 20:11 WBC 29.5 H RBC 4.10 Hgb 11.7 L Hct 34.9 L MCV 85 MCH 28.5 MCHC 33.4 RDW 14.9 H Plt Count 422 Seg Neutrophils % Not Reportable Lymphocytes % Not Reportable Monocytes % Not Reportable Eosinophils % Not Reportable Basophils % Not Reportable Absolute Neutrophils Not Reportable Absolute Lymphocytes Not Reportable Absolute Monocytes Not Reportable Absolute Eosinophils Not Reportable Absolute Basophils Not Reportable Carbonic Acid HCO3/H2CO3 Ratio ABG pH ABG pCO2 ABG pO2 ABG HCO3 ABG O2 Saturation ABG Base Excess FiO2 Sodium 138.1 Potassium 4.3 Chloride 107 Carbon Dioxide 20 L Anion Gap 11 BUN 21 H Creatinine 1.08 Est GFR ( Amer) > 60 Est GFR (Non-Af Amer) 49 L Glucose 103 Lactic Acid 2.2 H Calcium 9.8 Total Bilirubin 0.5 AST 26 ALT 23 Alkaline Phosphatase 93 Total Protein 5.9 L Albumin 3.5 Urine Color Urine Appearance Urine pH Ur Specific [place] Urine Protein Urine Glucose (UA) Urine Ketones Urine Blood Urine Nitrite Ur Leukocyte Esterase Urine WBC (Auto) Urine RBC (Auto) 05/10/18 05/10/18 20:32 21:40 WBC RBC Hgb Hct MCV MCH MCHC RDW Plt Count Seg Neutrophils % Lymphocytes % Monocytes % Eosinophils % Basophils % Absolute Neutrophils Absolute Lymphocytes Absolute Monocytes Absolute Eosinophils Absolute Basophils Carbonic Acid 0.84 L HCO3/H2CO3 Ratio 20:1 ABG pH 7.42 ABG pCO2 27.9 L ABG pO2 84.4 ABG HCO3 17.6 L ABG O2 Saturation 96.7 ABG Base Excess -5.7 FiO2 1.5L Sodium Potassium Chloride Carbon Dioxide Anion Gap BUN Creatinine Est GFR ( Amer) Est GFR (Non-Af Amer) Glucose Lactic Acid Calcium Total Bilirubin AST ALT Alkaline Phosphatase Total Protein Albumin Urine Color YELLOW Urine Appearance CLEAR Urine pH 6.0 Ur Specific [place] 1.016 Urine Protein NEGATIVE Urine Glucose (UA) NEGATIVE Urine Ketones NEGATIVE Urine Blood NEGATIVE Urine Nitrite NEGATIVE Ur Leukocyte Esterase NEGATIVE Urine WBC (Auto) 1 Urine RBC (Auto) 0 05/10/18 20:11 Troponin I 0.059 NT-Pro-B Natriuret Pep 603 H Impressions: Chest X-Ray 05/10/18 19:27 IMPRESSION: Focal nodular-like opacity in the right lower lung could be secondary to atelectasis, early infectious process or an underlying pulmonary nodule cannot be excluded. Recommend follow-up. Head CT 05/10/18 19:27 IMPRESSION: No acute intracranial findings. EVIDENCE OF ACUTE STROKE: NO. Assessment & Plan - Diagnosis (1) Acute respiratory failure with hypoxia Is this a current diagnosis for this admission?: Yes Plan: Patient was noted to have hypoxia in the emergency room requiring supplemental oxygen at 2 L/min per nasal cannula to maintain an adequate level of oxygenation greater than 93%. Patient be continued on nasal cannula oxygen as needed per oxygen protocol. (2) Community acquired pneumonia Qualifiers: Laterality: right Lung location: unspecified part of lung Qualified Code(s): J18.9 - Pneumonia, unspecified organism Is this a current diagnosis for this admission?: Yes Plan: Patient is started on empiric therapy with Rocephin 1 g IV daily and Zithromax 500 mg IV daily. She will receive a pulmonary toilet with Xopenex 3 times daily and oral guaifenesin. (3) Acute encephalopathy Is this a current diagnosis for this admission?: Yes Plan: Patient encephalopathy will be monitored closely as she is treated with IV fluids and IV antibiotics. Further evaluation will be undertaken as necessary if she is not showing relatively rapid improvement with therapy. (4) Leukocytosis Qualifiers: Leukocytosis type: unspecified Qualified Code(s): D72.829 - Elevated white blood cell count, unspecified Is this a current diagnosis for this admission?: Yes Plan: Patient's leukocytosis will be monitored with daily CBC determinations and further evaluation as indicated. (5) Elevated lactic acid level Is this a current diagnosis for this admission?: Yes Plan: Patient's lactic acid level be monitored with repeat evaluation on a every 4 hours basis. - Time Time Spent: 30 to 50 Minutes Critical Time spent with patient: Less than 15 minutes Medications reviewed and adjusted accordingly: Yes Anticipated discharge: Other - Assisted living facility in - Inpatient Certification Based on my medical assessment, after consideration of the patient's comorbidities, presenting symptoms, or acuity I expect that the services needed warrant INPATIENT care.: Yes I certify that my determination is in accordance with my understanding of Medicare's requirements for reasonable and necessary INPATIENT services [42 CFR 412.3e].: Yes Medical Necessity: Need Close Monitoring Due to Risk of Patient Decompensation, Need For IV Fluids, Need For Continuous Telemetry Monitoring, Need for Nebulizer Therapy and Monitoring of Response, Need for IV Antibiotics, Risk of Complication if Not Cared For in Hospital
[2018-05-11] MEDS ORDERED: AZITHROMYCIN INJ 500 MG VIAL IV ONE (06:29)
[2018-05-11] MEDS: AZITHROMYCIN 500 MG in DEXTROSE 5%-WATER 250 ML IV SCH (06:34)
[2018-05-11] MEDS: HEPARIN SOD (PORCINE) 5,000 UNIT/ML 1 ML SYRINGE SUBCUT SCH ×3 (06:35→22:18)
[2018-05-11] MEDS: CEFTRIAXONE 1 GM/D5W RTU 1 GM/50 ML RTUPB IV SCH (10:43)
[2018-05-11] MEDS: GUAIFENESIN 600 MG TABLET.SA PO SCH ×2 (10:47→21:56)
[2018-05-11] MEDS: DOCUSATE SODIUM 100 MG CAPSULE PO SCH ×2 (10:47→17:58)
[2018-05-11] MEDS: FAMOTIDINE 20 MG TABLET PO SCH ×2 (10:47→22:04)
--- NOTE | 2018-05-11 10:53 | PDOC PROGRESS REPORT ---
Subjective Progress Note for:: 05/11/18 Subjective:: Hospital day 1. patient states she is doing a little better than yesterday. She did not sleep well due to her cough. She denies any fevers chills nausea vomiting constipation or diarrhea. She states that for the last 6 months she has not been feeling well she feels her health is been going downhill since she moved into the current detention. Even to the detention with something she did by necessity rather than by choice. She denies any recent weight loss. Reason For Visit: PNEUMONIA Physical Exam Vital Signs: Temp Pulse Resp BP Pulse Ox 98.2 F 72 18 106/53 L 95 05/11/18 08:00 05/11/18 09:19 05/11/18 09:19 05/11/18 08:00 05/11/18 09:19 Intake & Output 05/10/18 05/11/18 05/12/18 06:59 06:59 06:59 Intake Total 1200 250 Balance 1200 250 Weight 61.7 kg General appearance: PRESENT: no acute distress, cooperative Eye exam: PRESENT: PERRLA. ABSENT: scleral icterus Mouth exam: PRESENT: moist, neck supple Neck exam: PRESENT: full ROM. ABSENT: JVD, tenderness, thyromegaly, tracheal deviation Respiratory exam: PRESENT: rhonchi - LLL. ABSENT: accessory muscle use GI/Abdominal exam: PRESENT: normal bowel sounds, soft. ABSENT: tenderness Musculoskeletal exam: PRESENT: tenderness - generalized Neurological exam: PRESENT: alert, oriented to person, oriented to time, oriented to situation Psychiatric exam: ABSENT: anxious Skin exam: PRESENT: dry, normal color, warm Results Laboratory Results: 05/11/18 03:31 05/11/18 03:31 05/10/18 05/10/18 05/10/18 20:11 20:11 20:11 WBC 29.5 H RBC 4.10 Hgb 11.7 L Hct 34.9 L MCV 85 MCH 28.5 MCHC 33.4 RDW 14.9 H Plt Count 422 Seg Neutrophils % Not Reportable Lymphocytes % Not Reportable Monocytes % Not Reportable Eosinophils % Not Reportable Basophils % Not Reportable Absolute Neutrophils Not Reportable Absolute Lymphocytes Not Reportable Absolute Monocytes Not Reportable Absolute Eosinophils Not Reportable Absolute Basophils Not Reportable Carbonic Acid HCO3/H2CO3 Ratio ABG pH ABG pCO2 ABG pO2 ABG HCO3 ABG O2 Saturation ABG Base Excess FiO2 Sodium 138.1 Potassium 4.3 Chloride 107 Carbon Dioxide 20 L Anion Gap 11 BUN 21 H Creatinine 1.08 Est GFR ( Amer) > 60 Est GFR (Non-Af Amer) 49 L Glucose 103 Lactic Acid 2.2 H Calcium 9.8 Magnesium Total Bilirubin 0.5 AST 26 ALT 23 Alkaline Phosphatase 93 Total Protein 5.9 L Albumin 3.5 TSH Free T4 Free T3 pg/mL Urine Color Urine Appearance Urine pH Ur Specific [place] Urine Protein Urine Glucose (UA) Urine Ketones Urine Blood Urine Nitrite Ur Leukocyte Esterase Urine WBC (Auto) Urine RBC (Auto) 05/10/18 05/10/18 05/10/18 20:11 20:32 21:40 WBC RBC Hgb Hct MCV MCH MCHC RDW Plt Count Seg Neutrophils % Lymphocytes % Monocytes % Eosinophils % Basophils % Absolute Neutrophils Absolute Lymphocytes Absolute Monocytes Absolute Eosinophils Absolute Basophils Carbonic Acid 0.84 L HCO3/H2CO3 Ratio 20:1 ABG pH 7.42 ABG pCO2 27.9 L ABG pO2 84.4 ABG HCO3 17.6 L ABG O2 Saturation 96.7 ABG Base Excess -5.7 FiO2 1.5L Sodium Potassium Chloride Carbon Dioxide Anion Gap BUN Creatinine Est GFR ( Amer) Est GFR (Non-Af Amer) Glucose Lactic Acid Calcium Magnesium Total Bilirubin AST ALT Alkaline Phosphatase Total Protein Albumin TSH Free T4 1.84 Free T3 pg/mL 2.86 Urine Color YELLOW Urine Appearance CLEAR Urine pH 6.0 Ur Specific [place] 1.016 Urine Protein NEGATIVE Urine Glucose (UA) NEGATIVE Urine Ketones NEGATIVE Urine Blood NEGATIVE Urine Nitrite NEGATIVE Ur Leukocyte Esterase NEGATIVE Urine WBC (Auto) 1 Urine RBC (Auto) 0 05/10/18 05/11/18 05/11/18 23:32 03:31 03:31 WBC 28.4 H RBC 3.90 Hgb 11.1 L Hct 33.6 L MCV 86 MCH 28.5 MCHC 33.1 RDW 14.8 H Plt Count 398 Seg Neutrophils % Not Reportable Lymphocytes % Not Reportable Monocytes % Not Reportable Eosinophils % Not Reportable Basophils % Not Reportable Absolute Neutrophils Not Reportable Absolute Lymphocytes Not Reportable Absolute Monocytes Not Reportable Absolute Eosinophils Not Reportable Absolute Basophils Not Reportable Carbonic Acid HCO3/H2CO3 Ratio ABG pH ABG pCO2 ABG pO2 ABG HCO3 ABG O2 Saturation ABG Base Excess FiO2 Sodium Potassium Chloride Carbon Dioxide Anion Gap BUN Creatinine Est GFR ( Amer) Est GFR (Non-Af Amer) Glucose Lactic Acid 1.8 1.7 Calcium Magnesium Total Bilirubin AST ALT Alkaline Phosphatase Total Protein Albumin TSH Free T4 Free T3 pg/mL Urine Color Urine Appearance Urine pH Ur Specific [place] Urine Protein Urine Glucose (UA) Urine Ketones Urine Blood Urine Nitrite Ur Leukocyte Esterase Urine WBC (Auto) Urine RBC (Auto) 05/11/18 05/11/18 05/11/18 03:31 03:31 08:05 WBC RBC Hgb Hct MCV MCH MCHC RDW Plt Count Seg Neutrophils % Lymphocytes % Monocytes % Eosinophils % Basophils % Absolute Neutrophils Absolute Lymphocytes Absolute Monocytes Absolute Eosinophils Absolute Basophils Carbonic Acid HCO3/H2CO3 Ratio ABG pH ABG pCO2 ABG pO2 ABG HCO3 ABG O2 Saturation ABG Base Excess FiO2 Sodium 138.7 Potassium 3.9 Chloride 108 H Carbon Dioxide 19 L Anion Gap 12 BUN 24 H Creatinine 1.13 Est GFR ( Amer) 57 L Est GFR (Non-Af Amer) 47 L Glucose 87 Lactic Acid 1.7 Calcium 9.1 Magnesium 1.6 Total Bilirubin AST ALT Alkaline Phosphatase Total Protein Albumin TSH 1.38 Free T4 Free T3 pg/mL Urine Color Urine Appearance Urine pH Ur Specific [place] Urine Protein Urine Glucose (UA) Urine Ketones Urine Blood Urine Nitrite Ur Leukocyte Esterase Urine WBC (Auto) Urine RBC (Auto) 05/10/18 20:11 Troponin I 0.059 NT-Pro-B Natriuret Pep 603 H Impressions: Chest X-Ray 05/10/18 19:27 IMPRESSION: Focal nodular-like opacity in the right lower lung could be secondary to atelectasis, early infectious process or an underlying pulmonary nodule cannot be excluded. Recommend follow-up. Head CT 05/10/18 19:27 IMPRESSION: No acute intracranial findings. EVIDENCE OF ACUTE STROKE: NO. Assessment & Plan - Diagnosis (1) Community acquired pneumonia Qualifiers: Laterality: right Lung location: unspecified part of lung Qualified Code(s): J18.9 - Pneumonia, unspecified organism Is this a current diagnosis for this admission?: Yes Plan: She does have a focal density on chest x-ray per my read. Does have a leukocytosis. Also endorses a cough so pneumonia is a high likelihood. We will continue with Rocephin and azithromycin. If not showing improvement over the next 24-48 hours will consider chest CT for further evaluation (2) Acute encephalopathy Is this a current diagnosis for this admission?: Yes Plan: Secondary to pneumonia. Appears to have resolved that she is very lucid at this point. We will continue to monitor (3) Leukocytosis Qualifiers: Leukocytosis type: unspecified Qualified Code(s): D72.829 - Elevated white blood cell count, unspecified Is this a current diagnosis for this admission?: Yes Plan: Most likely secondary to pneumonia. However given her decrease in functional status and recent admission to the nursing facility due to decrease in functional status will consider chest CT if not improving as possible cancer wo rkup - Time Time Spent with patient: 25-34 minutes Medications reviewed and adjusted accordingly: Yes Anticipated discharge: SNF
[2018-05-11 11:42] LABS: PATH REVIEW PATHOLOGIST REVIEWED
[2018-05-11] MEDS ORDERED: CHLORPROMAZINE HCL INJ 25 MG/1 ML AMPULE ONE (23:28)
[2018-05-11] MEDS: TRAMADOL HCL 50 MG TABLET PO PRN (23:53)
[2018-05-11] MEDS: CHLORPROMAZINE HCL INJ 25 MG/1 ML AMPULE IV PRN (23:56)
[2018-05-12] MEDS: LEVALBUTEROL HCL NEB 1.25 MG/3 ML AMPUL NEB SCH ×3 (00:10→16:28)
[2018-05-12 05:49] LABS: HEMATOCRIT 29.6 % (36.0-47.0); HEMOGLOBIN 10.2 g/dL (12.0-15.5); MEAN CORPUSCULAR HEMOGLOBIN 29.5 pg (27.0-33.4); MEAN CORPUSCULAR HGB CONC 34.5 g/dL (32.0-36.0); MEAN CORPUSCULAR VOLUME 85 fl (80-97); PLATELET COUNT 370 10^3/uL (150-450); RED BLOOD COUNT 3.47 10^6/uL (3.72-5.28); RED CELL DISTRIBUTION WIDTH 14.8 % (11.5-14.0); WHITE BLOOD COUNT 27.6 10^3/uL (4.0-10.5)
[2018-05-12] MEDS: AZITHROMYCIN 500 MG in DEXTROSE 5%-WATER 250 ML IV SCH (06:02)
[2018-05-12 06:14] LABS: ANION GAP 8 (5-19); BLOOD UREA NITROGEN 18 mg/dL (7-20); CALCIUM 9.6 mg/dL (8.4-10.2); CARBON DIOXIDE 21 mmol/L (22-30); CHLORIDE 111 mmol/L (98-107); GLUCOSE 82 mg/dL (75-110); POTASSIUM 3.7 mmol/L (3.6-5.0); SODIUM 139.8 mmol/L (137-145)
[2018-05-12 06:33] LABS: ABSOLUTE LYMPHOCYTES# (MANUAL) 1.1 10^3/uL (0.5-4.7); ABSOLUTE NEUTROPHILS# (MANUAL) 26.5 10^3/uL (1.7-8.2); BAND NEUTROPHILS % (MANUAL) 2 % (3-5); BASOPHILS % (MANUAL) 0 % (0-2); EOSINOPHILS % (MANUAL) 0 % (0-6); LYMPHOCYTES % (MANUAL) 4 % (13-45); MONOCYTES % (MANUAL) 0 % (3-13); SEGMENTED NEUTROPHILS % (MAN) 94 % (42-78); TOTAL CELLS COUNTED 100
[2018-05-12 06:34] LABS: ANISOCYTOSIS SLIGHT; PLATELET COMMENT ADEQUATE
[2018-05-12] MEDS: HEPARIN SOD (PORCINE) 5,000 UNIT/ML 1 ML SYRINGE SUBCUT SCH ×3 (06:50→21:18)
[2018-05-12] MEDS: GUAIFENESIN 600 MG TABLET.SA PO SCH ×2 (10:46→21:18)
[2018-05-12] MEDS: CEFTRIAXONE 1 GM/D5W RTU 1 GM/50 ML RTUPB IV SCH (10:47)
[2018-05-12] MEDS: FAMOTIDINE 20 MG TABLET PO SCH ×2 (10:47→21:18)
[2018-05-12] MEDS: DOCUSATE SODIUM 100 MG CAPSULE PO SCH ×2 (10:47→18:06)
--- NOTE | 2018-05-12 14:47 | Physician Advisory Note ---
Physician Advisor ProgressNote .: Pursuant to the plan for [facility], I have reviewed the medical record for this patient. Physician Advisor Statement: Attending, please document: 1. Most likely type of agent causing PNA: gram-neg? gram-pos? viral? aspiration?... (if gram-neg or aspiration type, please state supporting findings, such as elderly pt from facility, high WBC w/Lt shift, dysphagia or witnessed aspiration, ...) 2. Most likely type of encephalopathy: metabolic due to PNA? toxic due to Rx? or ...? 3. Has there been evidence of increased work of breathing associated w/pt's hypoxemia? 4. Effects from prior CVA: Does pt have "Lt/Rt hemiparesis" from prior CVA, or just 1 limb affected, or no residual effects, or ...? Add'l support in chart for current dx.s, not yet documented by attending: PNA: per ED nurse, EMS found pt to have fever of 100.9. ED provider stated (+) fever, rhonchi, tachycardia. H&P documented (+)rales. Ac ___ encephalopathy: per ED nurse, EMS found pt to go "in & out of orientation". Thanks! CK
[2018-05-12] MEDS: CHLORPROMAZINE HCL INJ 25 MG/1 ML AMPULE IV PRN (15:04)
--- NOTE | 2018-05-12 16:07 | PDOC PROGRESS REPORT ---
Subjective Progress Note for:: 05/12/18 Subjective:: Hospital day 2. patient states she is doing a little better than yesterday. She did not sleep well due to her cough. She denies any fevers chills nausea vomiting constipation or diarrhea. She states that for the last 6 months she has not been feeling well she feels her health is been going downhill since she moved into the current custodial. Even to the custodial with something she did by necessity rather than by choice. She denies any recent weight loss. Due to patient's previous CVA, she needs significant assistance with ambulation. Reason For Visit: PNEUMONIA Physical Exam Vital Signs: Temp Pulse Resp BP Pulse Ox 98.3 F 89 10 L 133/67 H 100 05/12/18 11:22 05/12/18 14:00 05/12/18 11:22 05/12/18 11:22 05/12/18 11:22 Intake & Output 05/11/18 05/12/18 05/13/18 06:59 06:59 06:59 Intake Total 1200 892 300 Balance 1200 892 300 Weight 61.7 kg 60.7 kg General appearance: PRESENT: no acute distress, cooperative Eye exam: ABSENT: scleral icterus Mouth exam: PRESENT: moist, neck supple Neck exam: PRESENT: full ROM. ABSENT: JVD, lymphadenopathy, thyromegaly, tracheal deviation Respiratory exam: PRESENT: rhonchi. ABSENT: accessory muscle use Cardiovascular exam: PRESENT: RRR. ABSENT: gallop GI/Abdominal exam: PRESENT: normal bowel sounds. ABSENT: ascites, soft, tenderness Extremities exam: ABSENT: tenderness Neurological exam: PRESENT: alert, oriented to person, oriented to place, oriented to time, oriented to situation Results Laboratory Results: 05/12/18 05:19 05/12/18 05:19 05/12/18 05/12/18 05:19 05:19 WBC 27.6 H RBC 3.47 L Hgb 10.2 L Hct 29.6 L MCV 85 MCH 29.5 MCHC 34.5 RDW 14.8 H Plt Count 370 Seg Neutrophils % Not Reportable Lymphocytes % Not Reportable Monocytes % Not Reportable Eosinophils % Not Reportable Basophils % Not Reportable Absolute Neutrophils Not Reportable Absolute Lymphocytes Not Reportable Absolute Monocytes Not Reportable Absolute Eosinophils Not Reportable Absolute Basophils Not Reportable Sodium 139.8 Potassium 3.7 Chloride 111 H Carbon Dioxide 21 L Anion Gap 8 BUN 18 Creatinine 0.91 Est GFR ( Amer) > 60 Est GFR (Non-Af Amer) > 60 Glucose 82 Calcium 9.6 Magnesium 1.8 05/10/18 20:11 Troponin I 0.059 NT-Pro-B Natriuret Pep 603 H Impressions: Chest X-Ray 05/10/18 19:27 IMPRESSION: Focal nodular-like opacity in the right lower lung could be secondary to atelectasis, early infectious process or an underlying pulmonary nodule cannot be excluded. Recommend follow-up. Head CT 05/10/18 19:27 IMPRESSION: No acute intracranial findings. EVIDENCE OF ACUTE STROKE: NO. Assessment & Plan - Diagnosis (1) Community acquired pneumonia Qualifiers: Laterality: right Lung location: unspecified part of lung Qualified Code(s): J18.9 - Pneumonia, unspecified organism Is this a current diagnosis for this admission?: Yes Plan: She does have a focal density on chest x-ray per my read. Does have a leukocytosis. Also endorses a cough so pneumonia is a high likelihood. We will continue with Rocephin and azithromycin. If not showing improvement over the next 24-48 hours will consider chest CT for further evaluation (2) Acute encephalopathy Is this a current diagnosis for this admission?: Yes Plan: Secondary to pneumonia. Appears to have resolved that she is very lucid at this point. We will continue to monitor (3) Leukocytosis Qualifiers: Leukocytosis type: unspecified Qualified Code(s): D72.829 - Elevated white blood cell count, unspecified Is this a current diagnosis for this admission?: Yes Plan: Most likely secondary to pneumonia. However given her decrease in functional status and recent admission to the nursing facility due to decrease in functiona l status will consider chest CT if not improving as possible cancer workup - Time Time Spent with patient: 25-34 minutes Medications reviewed and adjusted accordingly: Yes Anticipated discharge: SNF
[2018-05-13] MEDS: LEVALBUTEROL HCL NEB 1.25 MG/3 ML AMPUL NEB SCH ×3 (00:49→16:47)
[2018-05-13] MEDS: CHLORPROMAZINE HCL INJ 25 MG/1 ML AMPULE IV PRN ×2 (03:19→11:12)
[2018-05-13] MEDS: AZITHROMYCIN 500 MG in DEXTROSE 5%-WATER 250 ML IV SCH (05:36)
[2018-05-13] MEDS: HEPARIN SOD (PORCINE) 5,000 UNIT/ML 1 ML SYRINGE SUBCUT SCH ×3 (05:36→21:22)
[2018-05-13 05:55] LABS: HEMATOCRIT 29.9 % (36.0-47.0); HEMOGLOBIN 10.1 g/dL (12.0-15.5); MEAN CORPUSCULAR HEMOGLOBIN 28.9 pg (27.0-33.4); MEAN CORPUSCULAR HGB CONC 33.7 g/dL (32.0-36.0); MEAN CORPUSCULAR VOLUME 86 fl (80-97); PLATELET COUNT 391 10^3/uL (150-450); RED BLOOD COUNT 3.48 10^6/uL (3.72-5.28); RED CELL DISTRIBUTION WIDTH 14.9 % (11.5-14.0); WHITE BLOOD COUNT 18.5 10^3/uL (4.0-10.5)
[2018-05-13 06:09] LABS: ANION GAP 8 (5-19)
[2018-05-13 06:21] LABS: BLOOD UREA NITROGEN 16 mg/dL (7-20); CALCIUM 9.8 mg/dL (8.4-10.2); CARBON DIOXIDE 21 mmol/L (22-30); CHLORIDE 113 mmol/L (98-107); GLUCOSE 78 mg/dL (75-110); SODIUM 141.9 mmol/L (137-145)
[2018-05-13 06:27] LABS: ABSOLUTE LYMPHOCYTES# (MANUAL) 0.6 10^3/uL (0.5-4.7); ABSOLUTE MONOCYTES # (MANUAL) 0.4 10^3/uL (0.1-1.4); ABSOLUTE NEUTROPHILS# (MANUAL) 17.6 10^3/uL (1.7-8.2); BAND NEUTROPHILS % (MANUAL) 1 % (3-5); BASOPHILS % (MANUAL) 0 % (0-2); EOSINOPHILS % (MANUAL) 0 % (0-6); LYMPHOCYTES % (MANUAL) 2 % (13-45); MONOCYTES % (MANUAL) 2 % (3-13); SEGMENTED NEUTROPHILS % (MAN) 94 % (42-78); TOTAL CELLS COUNTED 100
[2018-05-13 06:28] LABS: ANISOCYTOSIS SLIGHT; PLATELET COMMENT ADEQUATE; TOXIC GRANULATION 1+; TOXIC VACUOLATION PRESENT
[2018-05-13 06:30] LABS: POTASSIUM 2.7 mmol/L (3.6-5.0)
[2018-05-13] MEDS: POTASSIUM CHLORIDE 20 MEQ/50 ML RTU IV SCH ×2 (08:05→11:05)
[2018-05-13] MEDS: POTASSIUM CHLORIDE 10 MEQ CAPSULE.ER PO SCH ×2 (08:06→17:23)
[2018-05-13] MEDS: CEFTRIAXONE 1 GM/D5W RTU 1 GM/50 ML RTUPB IV SCH (10:02)
[2018-05-13] MEDS: GUAIFENESIN 600 MG TABLET.SA PO SCH ×2 (10:03→21:22)
[2018-05-13] MEDS: FAMOTIDINE 20 MG TABLET PO SCH ×2 (10:03→21:22)
[2018-05-13] MEDS: DOCUSATE SODIUM 100 MG CAPSULE PO SCH ×2 (10:03→11:03)
[2018-05-13] MEDS: TRAMADOL HCL 50 MG TABLET PO PRN ×2 (12:27→17:23)
[2018-05-13] MEDS ORDERED: POTASSI CL 20 MEQ/50 ML RIDER 20 MEQ/50 ML RTUPB IV SCH (12:47)
[2018-05-13] MEDS ORDERED: CHLORPROMAZINE HCL INJ 25 MG/1 ML AMPULE IV PRN (13:44)
[2018-05-13] MEDS ORDERED: DOCUSATE SODIUM 100 MG CAPSULE PO PRN (15:50)
[2018-05-13] MEDS ORDERED: HALOPERIDOL LACTATE INJ 5 MG/1 ML VIAL ONE (18:27)
[2018-05-13] MEDS ORDERED: FUROSEMIDE 20 MG TABLET PO PRN (18:32)
[2018-05-13] MEDS: PREGABALIN 50 MG CAPSULE PO SCH (21:22)
[2018-05-13] MEDS ORDERED: TRAMADOL HCL 50 MG TABLET PO SCH (22:00)
[2018-05-14] MEDS: LEVALBUTEROL HCL NEB 1.25 MG/3 ML AMPUL NEB SCH ×3 (00:54→15:39)
[2018-05-14] MEDS: LEVOTHYROXINE SODIUM 0.1 MG TABLET PO SCH (05:17)
[2018-05-14] MEDS: HEPARIN SOD (PORCINE) 5,000 UNIT/ML 1 ML SYRINGE SUBCUT SCH ×3 (05:17→21:29)
[2018-05-14] MEDS: AZITHROMYCIN 500 MG in DEXTROSE 5%-WATER 250 ML IV SCH (05:17)
[2018-05-14 06:24] LABS: HEMATOCRIT 26.9 % (36.0-47.0); HEMOGLOBIN 9.2 g/dL (12.0-15.5); MEAN CORPUSCULAR HEMOGLOBIN 29.6 pg (27.0-33.4); MEAN CORPUSCULAR HGB CONC 34.3 g/dL (32.0-36.0); MEAN CORPUSCULAR VOLUME 86 fl (80-97); PLATELET COUNT 343 10^3/uL (150-450); RED BLOOD COUNT 3.12 10^6/uL (3.72-5.28); RED CELL DISTRIBUTION WIDTH 15.4 % (11.5-14.0); WHITE BLOOD COUNT 9.3 10^3/uL (4.0-10.5)
[2018-05-14 06:50] LABS: ANION GAP 9 (5-19); BLOOD UREA NITROGEN 13 mg/dL (7-20); CALCIUM 9.2 mg/dL (8.4-10.2); CARBON DIOXIDE 19 mmol/L (22-30); CHLORIDE 109 mmol/L (98-107); GLUCOSE 88 mg/dL (75-110); POTASSIUM 3.9 mmol/L (3.6-5.0); SODIUM 137.1 mmol/L (137-145)
--- NOTE | 2018-05-14 09:03 | RADIOLOGY REPORT (SQ) ---
EXAM DESCRIPTION: CHEST SINGLE VIEW COMPLETED DATE/TIME: 05/14/2018 8:21 am REASON FOR STUDY: pneumonia COMPARISON: 05/10/2018 NUMBER OF VIEWS: One view. TECHNIQUE: Single frontal radiographic image of the chest acquired. LIMITATIONS: None. FINDINGS: LUNGS AND PLEURA: Subsegmental airspace disease in the lung bases, right greater than left not significantly changed. There is a background of chronic interstitial lung disease. No pneumoth orax. MEDIASTINUM AND HEART: Stable heart size and mediastinal structures. BONY STRUCTURES: No acute findings. HARDWARE: None. OTHER: No other significant finding. IMPRESSION: Bilateral pneumonia. No significant change. TECHNICAL DOCUMENTATION: JOB ID: [id number] Reading location - IP/workstation name: [email or web address]
[2018-05-14] MEDS: POTASSIUM CHLORIDE 10 MEQ CAPSULE.ER PO SCH ×2 (09:22→17:25)
[2018-05-14] MEDS: TRAMADOL HCL 50 MG TABLET PO PRN (09:22)
[2018-05-14] MEDS: CELECOXIB 200 MG CAPSULE PO SCH ×2 (09:23→17:25)
[2018-05-14] MEDS: GUAIFENESIN 600 MG TABLET.SA PO SCH ×2 (09:23→21:29)
[2018-05-14] MEDS: DONEPEZIL HCL 5 MG TABLET PO SCH (09:23)
[2018-05-14] MEDS: FLUOXETINE HCL 20 MG CAPSULE PO SCH (09:23)
[2018-05-14] MEDS: HYDROXYCHLOROQUINE SULFATE 200 MG TABLET PO SCH (09:23)
[2018-05-14] MEDS: ESTROGENS,CONJUGATED 0.625 MG TABLET PO SCH (09:23)
[2018-05-14] MEDS: LORAZEPAM 0.5 MG TABLET PO SCH ×2 (09:23→17:25)
[2018-05-14] MEDS: CEFTRIAXONE 1 GM/D5W RTU 1 GM/50 ML RTUPB IV SCH (09:23)
[2018-05-14] MEDS: FAMOTIDINE 20 MG TABLET PO SCH ×2 (09:23→21:29)
[2018-05-14] MEDS: PREGABALIN 50 MG CAPSULE PO SCH ×2 (09:23→21:29)
[2018-05-14] MEDS ORDERED: DOCUSATE SODIUM 100 MG CAPSULE PO SCH (10:00)
[2018-05-14] MEDS ORDERED: DULOXETINE HCL 30 MG CAPSULE.DR PO ONE (14:30)
--- NOTE | 2018-05-14 15:24 | PDOC PROGRESS REPORT ---
Subjective Progress Note for:: 05/13/18 Subjective:: Patient has slid down on the bed. Appears uncomfortable but does not want repositioning. Reason For Visit: PNEUMONIA Physical Exam Vital Signs: Temp Pulse Resp BP Pulse Ox 98.1 F 82 20 145/70 H 100 05/13/18 07:38 05/13/18 08:52 05/13/18 08:52 05/13/18 07:38 05/13/18 08:52 Intake & Output 05/12/18 05/13/18 05/14/18 06:59 06:59 06:59 Intake Total 892 568 350 Balance 892 568 350 Weight 60.7 kg 58 kg General appearance: PRESENT: mild distress, other - Quite cranky Head exam: PRESENT: normocephalic Respiratory exam: PRESENT: decreased breath sounds - At bases, symmetrical. ABSENT: rhonchi - Did not appreciate any rhonchi, wheezes Cardiovascular exam: PRESENT: RRR, +S1, +S2 GI/Abdominal exam: PRESENT: normal bowel sounds, soft. ABSENT: tenderness Rectal exam: PRESENT: deferred Neurological exam: PRESENT: alert, awake, oriented to person, oriented to place, other - Quite cranky Psychiatric exam: PRESENT: agitated - As above. I did find out that this tends to be her baseline although it may be somewhat exaggerated in the hospital. Results Laboratory Results: 05/13/18 05:00 05/13/18 05:00 05/13/18 05/13/18 05:00 05:00 WBC 18.5 H RBC 3.48 L Hgb 10.1 L Hct 29.9 L MCV 86 MCH 28.9 MCHC 33.7 RDW 14.9 H Plt Count 391 Seg Neutrophils % Not Reportable Lymphocytes % Not Reportable Monocytes % Not Reportable Eosinophils % Not Reportable Basophils % Not Reportable Absolute Neutrophils Not Reportable Absolute Lymphocytes Not Reportable Absolute Monocytes Not Reportable Absolute Eosinophils Not Reportable Absolute Basophils Not Reportable Sodium 141.9 Potassium 2.7 L* D Chloride 113 H Carbon Dioxide 21 L Anion Gap 8 BUN 16 Creatinine 0.77 Est GFR ( Amer) > 60 Est GFR (Non-Af Amer) > 60 Glucose 78 Calcium 9.8 Magnesium 1.9 05/10/18 20:11 Troponin I 0.059 NT-Pro-B Natriuret Pep 603 H Impressions: Chest X-Ray 05/10/18 19:27 IMPRESSION: Focal nodular-like opacity in the right lower lung could be secondary to atelectasis, early infectious process or an underlying pulmonary nodule cannot be excluded. Recommend follow-up. Head CT 05/10/18 19:27 IMPRESSION: No acute intracranial findings. EVIDENCE OF ACUTE STROKE: NO. Assessment & Plan - Diagnosis (1) Community acquired pneumonia Qualifiers: Laterality: right Lung location: unspecified part of lung Qualified Code(s): J18.9 - Pneumonia, unspecified organism Is this a current diagnosis for this admission?: Yes Plan: The patient presents from an assisted living facility with altered mental status, positive chest x-ray, hypoxia and debilitated. She will be started on antibiotic therapy. Supplemental oxygen will be provided. Nebulizer treatments ordered. (2) Acute encephalopathy Is this a current diagnosis for this admission?: Yes Plan: Secondary to pneumonia. She does have underlying dementia. This makes her more susceptible to altered mental status. (3) Acute respiratory failure with hypoxia Is this a current diagnosis for this admission?: Yes (4) Leukocytosis Qualifiers: Leukocytosis type: unspecified Qualified Code(s): D72.829 - Elevated white blood cell count, unspecified Is this a current diagnosis for this admission?: Yes Plan: Slowly improving. White blood cell count on admission was 30,000. (5) Rheumatoid arthritis Qualifiers: Rheumatoid arthritis location: unspecified site Is this a current diagnosis for this admission?: Yes Plan: Continue Plaquenil. They will be bringing Voltaren gel [facility] to applied to the patient's knees. She is also on Lyrica and duloxetine for pain management. (6) Osteoarthritis Qualifiers: Spinal region: unspecified Is this a current diagnosis for this admission?: Yes Plan: Multiple joints involved. Voltaren gel will be brought into the facility as noted above. Symptomatic therapy. (7) Chronic pain Qualifiers: Chronic pain type: other chronic pain Qualified Code(s): G89.29 - Other chronic pain Is this a current diagnosis for this admission?: Yes Plan: Current pain management plan. Medications as noted above. (8) Dementia Qualifiers: Dementia type: unspecified type Dementia behavioral disturbance: with behavioral disturbance Qualified Code(s): F03.91 - Unspecified dementia with behavioral disturbance Is this a current diagnosis for this admission?: Yes Plan: I restarted her Aricept. The other medications such as Cymbalta and Prozac should also help with her "crankiness". - Time Time Spent with patient: 35 or more minutes Medications reviewed and adjusted accordingly: Yes [facility]ated [facility] Within: within 72 hours - Plan Summary Plan Summary: 40 minutes was spent during this encounter. Discussion with the patient's son as well as the shore working supervisor from the [facility] was carried out both in the room and at the computer so we could review medications, laboratory studies and imaging. There was some confusion as to the diagnoses as well as the patient's progress. For instance the patient was just treated for urinary tract infection and the urinalysis on admission was negative. We are going to likely transfer the patient back to the [facility] tomorrow or on Wednesday. They may need a prescription for Xopenex for inhalers as albuterol, I believe, can make her sl ightly hyper.
--- NOTE | 2018-05-14 15:29 | PDOC PROGRESS REPORT ---
Subjective Progress Note for:: 05/14/18 Subjective:: She is somewhat sleepy. She was medicated for agitation earlier. Her son woke her and she was quite pleasant. Reason For Visit: PNEUMONIA Physical Exam Vital Signs: Temp Pulse Resp BP Pulse Ox 99.1 F 84 18 147/67 H 98 05/14/18 11:06 05/14/18 14:00 05/14/18 11:06 05/14/18 11:06 05/14/18 11:06 Intake & Output 05/13/18 05/14/18 05/15/18 06:59 06:59 07:59 Intake Total 568 700 200 Balance 568 700 200 Weight 58 kg 66.2 kg General appearance: PRESENT: no acute distress, cooperative, well-developed Head exam: PRESENT: normocephalic Respiratory exam: PRESENT: symmetrical, unlabored. ABSENT: accessory muscle use, clear to auscultation larry - Slightly congested breath sounds with a wet cough, rales, wheezes Cardiovascular exam: PRESENT: RRR, +S1, +S2 GI/Abdominal exam: PRESENT: normal bowel sounds, soft. ABSENT: distended, tenderness Rectal exam: PRESENT: deferred Neurological exam: PRESENT: awake, oriented to person, oriented to place. ABSENT: alert - Slightly sleepy from medication Psychiatric exam: PRESENT: appropriate affect - Quite pleasant and cooperative. ABSENT: agitated, anxious Focused psych exam: ABSENT: delusional, restlessness Results Laboratory Results: 05/14/18 06:15 05/14/18 06:15 05/14/18 05/14/18 06:15 06:15 WBC 9.3 RBC 3.12 L Hgb 9.2 L Hct 26.9 L MCV 86 MCH 29.6 MCHC 34.3 RDW 15.4 H Plt Count 343 Sodium 137.1 Potassium 3.9 Chloride 109 H Carbon Dioxide 19 L Anion Gap 9 BUN 13 Creatinine 0.73 Est GFR ( Amer) > 60 Est GFR (Non-Af Amer) > 60 Glucose 88 Calcium 9.2 05/10/18 20:11 Troponin I 0.059 NT-Pro-B Natriuret Pep 603 H Impressions: Head CT 05/10/18 19:27 IMPRESSION: No acute intracranial findings. EVIDENCE OF ACUTE STROKE: NO. Chest X-Ray 05/14/18 06:00 IMPRESSION: Bilateral pneumonia. No significant change. Assessment & Plan - Diagnosis (1) Community acquired pneumonia Qualifiers: Laterality: right Lung location: unspecified part of lung Qualified Code(s): J18.9 - Pneumonia, unspecified organism Is this a current diagnosis for this admission?: Yes Plan: White blood cell count is down to the normal range at 9000 from 30,000 at admission. She will be able to complete a full course of antibiotic therapy back at the [facility]. Nebulizers and mucolytic's are ordered. (2) Acute encephalopathy Is this a current diagnosis for this admission?: Yes Plan: Clearly improved. She still has episodes of agitation but her son and the assembly line supervisor from the [facility] state that this is her baseline. (3) Acute respiratory failure with hypoxia Is this a current diagnosis for this admission?: Yes Plan: She is still on 2 L of oxygen. Continue nebulizer treatments scheduled and as needed. We will try and wean her from her oxygen. (4) Leukocytosis Qualifiers: Leukocytosis type: bandemia Qualified Code(s): D72.825 - Bandemia Is this a current diagnosis for this admission?: Yes Plan: As noted above white blood cell count is now normal. (5) Rheumatoid arthritis Qualifiers: Rheumatoid arthritis location: unspecified site Is this a current diagnosis for this admission?: Yes Plan: Back on her current medication regimen. This includes Plaquenil and she will have Voltaren brought from the [facility] for topical application. She also takes Celebrex regularly. (6) Osteoarthritis Qualifiers: Spinal region: unspecified Is this a current diagnosis for this admission?: Yes Plan: Multiple joints involved. Voltaren gel will be brought into the facility as noted above. Symptomatic therapy. (7) Chronic pain Qualifiers: Chronic pain type: other chronic pain Qualified Code(s): G89.29 - Other chronic pain Is this a current diagnosis for this admission?: Yes Plan: Current pain management plan. Medications as noted above. (8) Dementia Qualifiers: Dementia type: unspecified type Dementia behavioral disturbance: with behavioral disturbance Qualified Code(s): F03.91 - Unspecified dementia with behavioral disturbance Is this a current diagnosis for this admission?: Yes Plan: I restarted her Aricept. The other medications such as Cymbalta and Prozac should also help with her "crankiness". Today she is much more pleasant. She was given medication for agitation earlier this morning. - Time Time Spent with patient: 25-34 minutes Medications reviewed and adjusted accordingly: Yes Anticipated discharge: Other - The [facility] Within: within 48 hours
[2018-05-15] MEDS: LEVALBUTEROL HCL NEB 1.25 MG/3 ML AMPUL NEB SCH ×3 (00:17→15:58)
[2018-05-15] MEDS: HEPARIN SOD (PORCINE) 5,000 UNIT/ML 1 ML SYRINGE SUBCUT SCH ×3 (05:28→21:04)
[2018-05-15] MEDS: LEVOTHYROXINE SODIUM 0.1 MG TABLET PO SCH (05:28)
[2018-05-15] MEDS: AZITHROMYCIN 500 MG in DEXTROSE 5%-WATER 250 ML IV SCH (05:29)
[2018-05-15 05:36] LABS: HEMATOCRIT 25.1 % (36.0-47.0); HEMOGLOBIN 8.5 g/dL (12.0-15.5); MEAN CORPUSCULAR HEMOGLOBIN 29.4 pg (27.0-33.4); MEAN CORPUSCULAR VOLUME 86 fl (80-97); PLATELET COUNT 309 10^3/uL (150-450); RED BLOOD COUNT 2.91 10^6/uL (3.72-5.28); RED CELL DISTRIBUTION WIDTH 15.2 % (11.5-14.0); WHITE BLOOD COUNT 8.4 10^3/uL (4.0-10.5)
[2018-05-15 05:47] LABS: ANION GAP 7 (5-19); BLOOD UREA NITROGEN 11 mg/dL (7-20); CALCIUM 9.3 mg/dL (8.4-10.2); CARBON DIOXIDE 20 mmol/L (22-30); CHLORIDE 108 mmol/L (98-107); GLUCOSE 84 mg/dL (75-110); POTASSIUM 4.6 mmol/L (3.6-5.0); SODIUM 134.6 mmol/L (137-145)
[2018-05-15 06:03] LABS: ABSOLUTE LYMPHOCYTES# (MANUAL) 1.2 10^3/uL (0.5-4.7); ABSOLUTE MONOCYTES # (MANUAL) 1.4 10^3/uL (0.1-1.4); ABSOLUTE NEUTROPHILS# (MANUAL) 5.7 10^3/uL (1.7-8.2); BASOPHILS % (MANUAL) 1 % (0-2); EOSINOPHILS % (MANUAL) 0 % (0-6); LYMPHOCYTES % (MANUAL) 14 % (13-45); MONOCYTES % (MANUAL) 17 % (3-13); SEGMENTED NEUTROPHILS % (MAN) 68 % (42-78); TOTAL CELLS COUNTED 100
[2018-05-15 06:05] LABS: OVALOCYTES SLIGHT; PLATELET COMMENT ADEQUATE; POIKILOCYTOSIS SLIGHT; ROULEAUX SLIGHT; TOXIC GRANULATION SLIGHT; TOXIC VACUOLATION PRESENT
[2018-05-15] MEDS: ESTROGENS,CONJUGATED 0.625 MG TABLET PO SCH (07:44)
[2018-05-15] MEDS: POTASSIUM CHLORIDE 10 MEQ CAPSULE.ER PO SCH ×2 (07:45→17:02)
[2018-05-15] MEDS: DONEPEZIL HCL 5 MG TABLET PO SCH (07:47)
[2018-05-15] MEDS: FLUOXETINE HCL 20 MG CAPSULE PO SCH (07:47)
[2018-05-15] MEDS: HYDROXYCHLOROQUINE SULFATE 200 MG TABLET PO SCH (07:47)
[2018-05-15] MEDS ORDERED: (PENDING PHARMACY ID) (Duloxetine Hcl [Cymbalta] 120 MG) PO SCH (08:00)
[2018-05-15] MEDS: FAMOTIDINE 20 MG TABLET PO SCH ×2 (09:57→21:04)
[2018-05-15] MEDS: LORAZEPAM 0.5 MG TABLET PO SCH ×2 (09:57→17:03)
[2018-05-15] MEDS: CELECOXIB 200 MG CAPSULE PO SCH ×2 (09:58→17:03)
[2018-05-15] MEDS: GUAIFENESIN 600 MG TABLET.SA PO SCH ×2 (09:58→21:04)
[2018-05-15] MEDS: PREGABALIN 50 MG CAPSULE PO SCH ×2 (09:58→21:04)
[2018-05-15] MEDS: CEFTRIAXONE 1 GM/D5W RTU 1 GM/50 ML RTUPB IV SCH (09:59)
[2018-05-15] MEDS: DULOXETINE HCL 30 MG CAPSULE.DR PO SCH (10:02)
--- NOTE | 2018-05-15 18:16 | PDOC PROGRESS REPORT ---
Subjective Progress Note for:: 05/15/18 Subjective:: Patient is in reasonable spirits today. Very cooperative. Reason For Visit: PNEUMONIA Physical Exam Vital Signs: Temp Pulse Resp BP Pulse Ox 98.2 F 80 16 125/51 L 96 05/15/18 15:37 05/15/18 15:58 05/15/18 15:58 05/15/18 15:37 05/15/18 15:58 Intake & Output 05/14/18 05/15/18 05/16/18 05:59 06:59 06:59 Intake Total 517 Balance 517 Weight General appearance: PRESENT: no acute distress, cooperative, well-developed Head exam: PRESENT: normocephalic Respiratory exam: PRESENT: rales, symmetrical, unlabored. ABSENT: accessory muscle use, wheezes Cardiovascular exam: PRESENT: RRR, +S1, +S2 GI/Abdominal exam: PRESENT: normal bowel sounds, soft. ABSENT: distended, guarding, tenderness Rectal exam: PRESENT: deferred Extremities exam: ABSENT: pedal edema Neurological exam: PRESENT: alert, awake, oriented to person, oriented to place, oriented to situation Psychiatric exam: PRESENT: appropriate affect, normal mood. ABSENT: agitated, anxious Focused psych exam: ABSENT: delusional, restlessness Results Laboratory Results: 05/15/18 04:20 05/15/18 04:20 05/15/18 05/15/18 04:20 04:20 WBC 8.4 RBC 2.91 L Hgb 8.5 L Hct 25.1 L MCV 86 MCH 29.4 MCHC 34.0 RDW 15.2 H Plt Count 309 Seg Neutrophils % Not Reportable Lymphocytes % Not Reportable Monocytes % Not Reportable Eosinophils % Not Reportable Basophils % Not Reportable Absolute Neutrophils Not Reportable Absolute Lymphocytes Not Reportable Absolute Monocytes Not Reportable Absolute Eosinophils Not Reportable Absolute Basophils Not Reportable Sodium 134.6 L Potassium 4.6 Chloride 108 H Carbon Dioxide 20 L Anion Gap 7 BUN 11 Creatinine 0.84 Est GFR ( Amer) > 60 Est GFR (Non-Af Amer) > 60 Glucose 84 Calcium 9.3 Magnesium 1.7 05/10/18 20:11 Troponin I 0.059 NT-Pro-B Natriuret Pep 603 H Impressions: Head CT 05/10/18 19:27 IMPRESSION: No acute intracranial findings. EVIDENCE OF ACUTE STROKE: NO. Chest X-Ray 05/14/18 06:00 IMPRESSION: Bilateral pneumonia. No significant change. Assessment & Plan - Diagnosis (1) Community acquired pneumonia Qualifiers: Laterality: right Lung location: unspecified part of lung Qualified Code(s): J18.9 - Pneumonia, unspecified organism Is this a current diagnosis for this admission?: Yes Plan: Continues to improve. Encourage incentive spirometer. Antibiotics as ordered. Unsure of the etiology. Possibly pneumococcal. Blood cultures were negative and sputum culture was never obtained. (2) Acute encephalopathy Is this a current diagnosis for this admission?: Yes Plan: Secondary to pneumonia with underlying dementia. Resolved (3) Acute respiratory failure with hypoxia Is this a current diagnosis for this admission?: Yes Plan: Currently on nasal cannula. The patient is not on nasal cannula at home. If necessary the assisted living can obtain oxygen therapy and wean her off slowly. (4) Leukocytosis Qualifiers: Leukocytosis type: bandemia Qualified Code(s): D72.825 - Bandemia Is this a current diagnosis for this admission?: Yes Plan: Resolved (5) Rheumatoid arthritis Qualifiers: Rheumatoid arthritis location: unspecified site Is this a current diagnosis for this admission?: Yes Plan: Stable continue current medications (6) Osteoarthritis Qualifiers: Spinal region: unspecified Is this a current diagnosis for this admission?: Yes Plan: Stable continue current medications (7) Chronic pain Qualifiers: Chronic pain type: other chronic pain Qualified Code(s): G89.29 - Other chronic pain Is this a current diagnosis for this admission?: Yes Plan: She is back on her preadmission medication regimen and seems to be doing well. (8) Dementia Qualifiers: Dementia type: unspecified type Dementia behavioral disturbance: with b ehavioral disturbance Qualified Code(s): F03.91 - Unspecified dementia with behavioral disturbance Is this a current diagnosis for this admission?: Yes Plan: This would make her susceptible to altered mental status with the stress of infection or interruption of her normal day-to-day existence such as being hospitalized. She seems much better. - Time Time Spent with patient: Less than 15 minutes Medications reviewed and adjusted accordingly: Yes Anticipated discharge: Other - Back to assisted living Within: within 24 hours
[2018-05-16] MEDS: LEVALBUTEROL HCL NEB 1.25 MG/3 ML AMPUL NEB SCH ×2 (00:19→08:13)
[2018-05-16] MEDS: AZITHROMYCIN 500 MG in DEXTROSE 5%-WATER 250 ML IV SCH (05:23)
[2018-05-16] MEDS: HEPARIN SOD (PORCINE) 5,000 UNIT/ML 1 ML SYRINGE SUBCUT SCH ×2 (05:24→13:19)
[2018-05-16] MEDS: LEVOTHYROXINE SODIUM 0.1 MG TABLET PO SCH (05:24)
--- NOTE | 2018-05-16 12:15 | PDOC TRANSFER SUMMARY ---
General - Admit/Disc Date/PCP Admission Date/Primary Care Provider: 05/10/18 23:04 PITO Gaona ELIZABETH SALCEDO Discharge Date: 05/16/18 - Return to the [facility] assisted living facility - Discharge Diagnosis (1) Community acquired pneumonia Is this a current diagnosis for this admission?: Yes Summary: The patient was treated with azithromycin and Rocephin. Her white blood cell count took several days but finally normalized. A sputum unfortunately was not able to be captured for culture. The etiology was most likely bacterial. Possibly pneumococcal. The patient is feeling much better and in fact is on room air. (2) Acute encephalopathy Is this a current diagnosis for this admission?: Yes Summary: Primary reason would be the infection. The patient also has underlying dementia. Change in environment as well as acute illness certainly exacerbate her underlying stable condition. Encephalopathy resolved. The patient was very agitated initially. Discussions with family reveal that she can be cranky. She in fact is pleasant and cooperative at the time of discharge. (3) Acute respiratory failure with hypoxia Is this a current diagnosis for this admission?: Yes Summary: Secondary to pneumonia. The patient is back on room air. She did receive nebulizer treatments and I will send a prescription back with her for Xopenex nebulizers if needed. I will supply a small amount (4) Leukocytosis Is this a current diagnosis for this admission?: Yes Summary: White blood cell count normalized with antibiotic therapy (5) Rheumatoid arthritis Is this a current diagnosis for this admission?: Yes Summary: Patient remained on her Plaquenil. Condition stable throughout hospitalization. (6) Osteoarthritis Is this a current diagnosis for this admission?: Yes Summary: The patient did have increased joint pain initially. We restored her baseline medications. We did not carry diclofenac gel but she will return to this once back at the [facility]. (7) Chronic pain Is this a current diagnosis for this admission?: Yes Summary: Back on Lyrica and Celebrex and duloxetine. Plaquenil 4 rheumatoid arthritis. (8) Dementia Is this a current diagnosis for this admission?: Yes Summary: I believe underlying dementia even if mild contributed to her encephalopathy with agitation for 2 reasons. The infection certainly could exacerbate it and the change of location and environment can always be a trigger for decompensation with dementia. - Additional Information Resuscitation Status: Do Not Resuscitate Discharge Activity: Activity As Tolerated, Balance Activity w/Rest Prescriptions: Cefuroxime Axetil [Ceftin 250 mg Tablet] 250 mg PO BID 4 Days #8 tablet Levalbuterol HCl [Xopenex Neb 1.25 mg/3 ml Ampul] 1.25 mg NEB Q8HP PRN 10 Days #20 vial.neb PRN Reason: Shortness Of Breath Home Medications: Acetaminophen [Tylenol Extra Strength 500 mg Tablet] 500 mg PO Q4HP PRN 05/11/18 Ascorbic Acid [Vitamin C] 1,000 mg PO QAM 05/11/18 Benzonatate [Tessalon Perle 100 mg Capsule] 200 mg PO Q8HP PRN 05/11/18 Celecoxib [Celebrex 200 mg Capsule] 200 mg PO BID 05/11/18 Colchicine [Colchicine 0.6 mg Tablet] 0.6 mg PO QAM 05/11/18 Diclofenac Sodium [Voltaren] 2 gm TOP QID 05/11/18 Diphenhydramine HCl [Banophen] 25 mg PO HSP PRN 05/11/18 Donepezil HCl [Aricept 5 mg Tablet] 5 mg PO QAM 05/11/18 Duloxetine HCl [Cymbalta] 120 mg PO QAM 05/11/18 Estrogens,Conjugated [Premarin 0.625 mg Tablet] 0.625 mg PO QAM 05/11/18 Fish Oil/Borage/Flax/Om3,6,9 1 [[place] 3-6-9 1,200 mg Softgel] 1,200 mg PO QAM 05/11/18 Fluoxetine HCl [Prozac 20 mg Capsule] 40 mg PO QAM 05/11/18 Folic Acid [Folvite 1 mg Tablet] 1 mg PO QAM 05/11/18 Furosemide [Lasix 20 mg Tablet] 20 mg PO QAMP PRN 05/11/18 Green Tea [place] Extract [Green Tea] 2 cap PO QAM 05/11/18 Guaifenesin [Robafen] 10 ml PO Q4HP PRN 05/11/18 Guaifenesin/D-Methorphan Hb [Robafen-Dm Syrup] 10 ml PO Q4HP PRN 05/11/18 Hydroxychloroquine Sulfate [Plaquenil 200 mg Tablet] 200 mg PO QAM 05/11/18 Juniper/Gemini/Znox/Pet,Wh/Kaveh [Endit Ointment] 1 applic TOP BID 05/11/18 Levothyroxine Sodium 100 mcg PO Q6AM 05/11/18 Loperamide HCl [Anti-Diarrhea] 2 mg PO ASDIR PRN 05/11/18 Lorazepam [Ativan 0.5 mg Tablet] 0.5 mg PO BID 05/11/18 Mag Hydrox/Al Hydrox/Simeth [Maalox Plus Susp 30 Udcup] 30 ml PO Q4HP PRN 05/11/18 Magnesium Hydroxide [Milk of Magnesia 30 ml Udcup] 30 ml PO DAILYP PRN 05/11/18 Omeprazole 20 mg PO BID 05/11/18 Ondansetron [Zofran Odt 4 mg Tablet] 4 mg SL Q8HP PRN 05/11/18 Oxybutynin Chloride [Ditropan Xl] 5 mg PO QAM 05/11/18 Potassium Chloride [Klor-Con M10] 10 meq PO QAM 05/11/18 Pregabalin [Lyrica 50 mg Capsule] 50 mg PO Q12 05/11/18 Tramadol HCl [Ultram 50 mg Tablet] 50 mg PO QID 05/11/18 Cefuroxime Axetil [Ceftin 250 mg Tablet] 250 mg PO BID 4 Days #8 tablet 05/16/18 Docusate Sodium [Colace 100 mg Capsule] 100 mg PO DAILYP PRN capsule 05/16/18 Duloxetine HCl [Cymbalta 30 mg Capsule.] 120 mg PO DAILY capsule. 05/16/18 Levalbuterol HCl [Xopenex Neb 1.25 mg/3 ml Ampul] 1.25 mg NEB Q8HP PRN 10 Days #20 vial.neb 05/16/18 Tramadol HCl [Ultram 50 mg Tablet] 50 mg PO Q6HP PRN tablet 05/16/18 History of Present Illness Admission Date/PCP: 05/10/18 23:04 HONORIO CONNELLC Patient complains of: Shortness of breath and confusion History of Present Illness: TYSHAWN SIFUENTES is a 78 year old female who lives at the [facility]. She has a complex medical history with significant debility from rheumatoid and osteoarthritis. She is on multiple medications for chronic pain management. She has history of mild dementia on Aricept. She was noted to be extremely confused and agitated and was transported to the hospital. X-rays revealed a pneumonia with a significant elevation in her white blood cell count. She was hypoxic and required oxygen supplementation. She was also quite agitated. She was referred to the hospital service for admission. Hospital Course Hospital Course: Her initial hospital course was complicated by her chronic pain as well as infection contributing to encephalopathy and behavioral issues. She is quite agitated. I was able to slowly resume her prior medication regimen. This impr joana pain control and as her infection improved she settled down quite nicely. Over the last several days she has been extremely pleasant and cooperative. Her white blood cell count has normalized on azithromycin and Rocephin. Her pain is improved back on her home regimen. She is on room air at this time. The patient completed a full course of azithromycin and will be given Ceftin for several more days to complete her antibiotics. I have also written a prescription for Xopenex to be used as needed. I have also asked to encourage use of incentive spirometer. She did have transient hypokalemia that was corrected. She is on chronic furosemide therapy. I suggested she see her primary care provider next week and repeat blood work obtained. Physical Exam Vital Signs: Temp Pulse Resp BP Pulse Ox 98.3 F 88 16 115/54 L 96 05/15/18 20:52 05/16/18 08:13 05/16/18 08:13 05/15/18 20:52 05/16/18 08:13 Intake & Output 05/15/18 05/16/18 05/17/18 06:59 06:59 06:59 Intake Total 754 Balance 754 Weight 58.5 kg General appearance: PRESENT: no acute distress, cooperative, well-developed Head exam: PRESENT: normocephalic Eye exam: PRESENT: conjunctiva pink, other - Patient wears glasses. ABSENT: scleral icterus Ear exam: PRESENT: normal external ear exam Neck exam: ABSENT: carotid bruit, JVD, lymphadenopathy Respiratory exam: PRESENT: rales - Still with faint rales at bases possibly atelectasis., symmetrical, unlabored. ABSENT: accessory muscle use, clear to auscultation larry, rhonchi, wheezes Cardiovascular exam: PRESENT: RRR, +S1, +S2 GI/Abdominal exam: PRESENT: normal bowel sounds, soft. ABSENT: guarding, tenderness Rectal exam: PRESENT: deferred Neurological exam: PRESENT: alert, awake, oriented to person, oriented to place, oriented to situation Psychiatric exam: PRESENT: appropriate affect, normal mood. ABSENT: agitated, anxious Results Laboratory Results: 05/15/18 04:20 05/15/18 04:20 05/10/18 20:40 Blood Blood Culture - Final NO GROWTH IN 5 DAYS 05/10/18 20:11 Blood Blood Culture - Final NO GROWTH IN 5 DAYS 05/10/18 20:11 Troponin I 0.059 NT-Pro-B Natriuret Pep 603 H Impressions: Head CT 05/10/18 19:27 IMPRESSION: No acute intracranial findings. EVIDENCE OF ACUTE STROKE: NO. Chest X-Ray 05/14/18 06:00 IMPRESSION: Bilateral pneumonia. No significant change. Transfer Plan - Disposition Transfer Plan: The patient will return to the [facility] assisted living [facility]. She is back on room air She will resume her previous medication regimen. To complete her antibiotic therapy she requires several days of oral antibiotics only. - Time Spent with Patient Time spent with patient: Greater than 30 Minutes Qualifiers - * PATIENT BEING DISCHARGED WITH ANY OF THE FOLLOWING DIAGNOSIS: No
[2018-05-16 13:10] VITALS: BP 122/62
[2018-05-16] MEDS: DULOXETINE HCL 30 MG CAPSULE.DR PO SCH (13:17)
[2018-05-16] MEDS: FLUOXETINE HCL 20 MG CAPSULE PO SCH (13:17)
[2018-05-16] MEDS: PREGABALIN 50 MG CAPSULE PO SCH (13:18)
[2018-05-16] MEDS: CELECOXIB 200 MG CAPSULE PO SCH (13:18)
[2018-05-16] MEDS: ESTROGENS,CONJUGATED 0.625 MG TABLET PO SCH (13:18)
[2018-05-16] MEDS: HYDROXYCHLOROQUINE SULFATE 200 MG TABLET PO SCH (13:18)
[2018-05-16] MEDS: GUAIFENESIN 600 MG TABLET.SA PO SCH (13:18)
[2018-05-16] MEDS: FAMOTIDINE 20 MG TABLET PO SCH (13:18)
[2018-05-16] MEDS: DONEPEZIL HCL 5 MG TABLET PO SCH (13:18)
[2018-05-16] MEDS: LORAZEPAM 0.5 MG TABLET PO SCH (13:18)
[2018-05-16] MEDS: CEFTRIAXONE 1 GM/D5W RTU 1 GM/50 ML RTUPB IV SCH (13:19)
[2018-05-16] MEDS: POTASSIUM CHLORIDE 10 MEQ CAPSULE.ER PO SCH (13:23)
== END 2018-05-16 15:21 | disposition home health service (06) | DRG 193 ==
LOC: ER 18:34 → EH 23:04 → 3W 05-11 02:00
PROVIDERS: ADMIT Emergency Medicine; ATTEND Emergency Medicine
PROC: 3E0F73Z Introduction of Anti-inflammatory into Respiratory Tract, Via Natural or Artificial Opening (ICD-10-PCS; principal; 2018-05-11)
DX: J13 Pneumonia due to Streptococcus pneumoniae (principal); J96.01 Acute respiratory failure with hypoxia; G93.40 Encephalopathy, unspecified; F03.91 Unspecified dementia, unspecified severity, with behavioral disturbance; M06.9 Rheumatoid arthritis, unspecified; G89.29 Other chronic pain; E87.6 Hypokalemia; I10 Essential (primary) hypertension; Z79.1 Long term (current) use of non-steroidal anti-inflammatories (NSAID); Z79.899 Other long term (current) drug therapy; Z79.890 Hormone replacement therapy; Z88.8 Allergy status to other drugs, medicaments and biological substances; Z88.6 Allergy status to analgesic agent; Z91.013 Allergy to seafood; Z86.73 Personal history of transient ischemic attack (TIA), and cerebral infarction without residual deficits; Z82.3 Family history of stroke; Z82.49 Family history of ischemic heart disease and other diseases of the circulatory system
CPT/HCPCS: 36415; 36600; 51701; 70450; 71045; 80048; 80053; 81001; 82803; 83036; 83605; 83735; 83880; 84439; 84443; 84481; 84484; 85025; 85027; 87040; 87493; 93005; 93010; 96365; 96367; 99285; J0456; J0696; J1630; J1644; J2543; J3230; J3370; J3480; J3490; J7030; J7060